=== PATIENT | male | born 1960 | race Caucasian/White ===

== ENCOUNTER → 2018-02-08 15:11 | Outpatient (CLI) | payer BC, SELFPAY ==
[2018-02-08 15:35] LABS: Basophils # 0.1 K/mm3 (0-0.2); Basophils % 0.9 % (0.1-2.0); Eosinophils # 0.3 K/mm3 (0.0-0.4); Eosinophils % 3.5 % (0.1-12.0); Hematocrit 49.2 % (42.0-52.0); Hemoglobin 16.9 g/dL (14.1-18.0); Lymphocytes # 2.3 K/mm3 (0.7-4.5); Lymphocytes % 28.1 K/mm3 (10-50); Mean Corpuscular HGB Conc 34.3 g/dL (31.8-35.4); Mean Corpuscular Hemoglobin 31.6 pg (27.0-31.2); Mean Corpuscular Volume 92.1 fl (80-94); Mean Platelet Volume 7.1 fl (7.4-10.4); Monocytes # 0.6 K/mm3 (0.1-1.0); Monocytes % 7.2 % (1.7-9.3); Neutrophils % 60.4 % (37.0-80.0); Platelet Count 195 K/mm3 (142-424); Red Blood Count 5.35 M/mm3 (4.60-6.20); Red Cell Distribution Width 12.5 % (11.5-17.5); White Blood Count 8.3 K/mm3 (4.8-10.8)
[2018-02-08 16:01] LABS: Prothrombin Time 10.8 seconds (9.4-11.8)
[2018-02-08 17:15] LABS: Anion Gap 13.6 mEq/L (5-15); Blood Urea Nitrogen 13 mg/dL (7-18); Carbon Dioxide 27 mmol/L (21.0-32.0); Chloride 103 mmol/L (98-107); Creatinine,Serum 0.72 mg/dL (0.70-1.30); Estimated Glomerular Filt Rate 113 ml/min (>60); GFR (African American) 136 ML/MIN (>60); Glucose 100 mg/dL (74-106); Potassium 4.6 mmoL/L (3.5-5.1); Sodium 139 mmol/L (136-145)
== END ==
PROVIDERS: Visit Provider Surgery
DX: Z01.818 Encounter for other preprocedural examination (principal); K42.9 Umbilical hernia without obstruction or gangrene
CPT/HCPCS: 36415; 80048; 85025; 85610

== ENCOUNTER → 2018-04-03 12:50 | Outpatient (CLI) | payer BC, SELFPAY ==
[2018-04-03 15:05] LABS: Blood Urea Nitrogen 13 mg/dL (7-18); Creatinine,Serum 0.86 mg/dL (0.70-1.30); Estimated Glomerular Filt Rate 92 ml/min (>60); GFR (African American) 111 ML/MIN (>60)
== END ==
PROVIDERS: Visit Provider Surgery
DX: K46.9 Unspecified abdominal hernia without obstruction or gangrene (principal)
CPT/HCPCS: 36415; 82565; 84520

== ENCOUNTER → 2018-04-06 09:27 | Outpatient (CLI) | payer BC, SELFPAY ==
--- NOTE | 2018-04-06 09:30 | CT_ITS ---
CT abdomen pelvis w con CLINICAL INDICATION: Follow-up hernia surgery, residual or recurrent hernia ITS.REASON: Hernia ORDERING PHYSICIAN: Armin Rivera MD PATIENT AGE: 58 years COMPARISON: None TECHNIQUE: Axial images obtained with sagittal and coronal reformats. All CT scans at the facility use one or more dose reduction, viz: automated exposure control; ma/kV adjustment per patient size (including targeted exams where dose is matched to indication; i.e. head); or iterative reconstruction technique. PROCEDURE: Oral Contrast: Redicat IV Contrast: 75 mL is Isovue-[id number]. FINDINGS: No acute finding in the lung bases. Coronary artery calcifications are present. The liver, gallbladder, spleen, adrenal glands, and kidneys have an unremarkable appearance. No pancreatic mass or ductal dilatation. Tiny calcific density is present in the head of the pancreas nonspecific. No intestinal obstruction or free air. No evidence of appendicitis or diverticulitis. There is been recent umbilical hernia repair. Fluid density is present in the umbilical region measuring 2.2 x 2.8 cm. There does appear to be a residual or recurrent umbilical hernia. This does contain fluid density measuring 2.8 x 2.4 cm and could be due to a small seroma. IMPRESSION: Small residual or recurrent umbilical hernia which contains fluid density consistent with a small seroma
== END ==
PROVIDERS: Family Provider Emergency Medicine; PCP Emergency Medicine; Visit Provider Surgery
DX: K46.9 Unspecified abdominal hernia without obstruction or gangrene (principal)
CPT/HCPCS: 74177; Q9967

== ENCOUNTER → 2018-04-17 10:40 | Outpatient (REF) | payer BC, SELFPAY ==
[2018-04-17 13:50] LABS: Chol/HDL Ratio 8.2 (1-3.5); Cholesterol 206 mg/dL (140-200); HDL Cholesterol 25 mg/dL (27-67); Triglycerides 400 mg/dL (30-200)
[2018-04-17 13:58] LABS: LDL Cholesterol 101 mg/dL (0-130)
== END ==
LOC: LAB 10:40
PROVIDERS: Visit Provider Emergency Medicine
DX: I10 Essential (primary) hypertension (principal)
CPT/HCPCS: 80061

== ENCOUNTER 2018-10-09 02:40 | Observation (INO) ==
--- NOTE | 2018-10-09 02:56 | Emergency Department Note ---
ED Disposition Clinical Impression: Acute bronchitis with bronchospasm, Hypoxia Disposition: Still a Patient Condition on Discharge: Fair Referrals: George Greco MD [Primary Care Provider] - - Critical Care Critical Care Time: No Attestation: On , the high probability of a clinically significant, sudden or life threatening deterioration of the following system(s) required my full and direct attention, intervention and personal management. The time I documented below is in addition to time spent performing reported procedures but includes the following listed in this critical care notation. Vital system(s) involved:: Respiratory Failure My critical care processes included: Assessment & monitoring of V/S, Initial and Re-exams, Data Review/Interpretation, Coordinating Care, Medication Orders and management, Documentation Medical Decision Making - Jose Manuel Inquiry Pt receiving controlled substance: No Vital Signs: 10/09/18 02:41 10/09/18 03:11 10/09/18 03:30 Temperature 99.3 F 98.5 F Temperature Source Oral Oral Pulse Rate [Right Brachial] 89 82 84 Respiratory Rate 26 H 21 19 Blood Pressure [Right Arm] 168/104 H 133/76 Blood Pressure Mean [Right Arm] 125 95 Blood Pressure Source [Right Arm] Manual Cuff/ Auscultation 02 Sat by Pulse Oximetry 87 L 94 L 94 L Oxygen Delivery Method Room Air Nasal Cannula Nasal Cannula Oxygen Flow Rate (LPM) 2 2 10/09/18 04:00 Temperature Temperature Source Pulse Rate [Right Brachial] 99 H Respiratory Rate 24 Blood Pressure [Right Arm] 143/86 H Blood Pressure Mean [Right Arm] 105 Blood Pressure Source [Right Arm] 02 Sat by Pulse Oximetry 91 L Oxygen Delivery Method Room Air Oxygen Flow Rate (LPM) - Lab Data Lab Results 10/09/18 02:50: WBC 10.1, RBC 5.43, Hgb 17.1, Hct 52.7 H, MCV 96.9 H, MCH 31.5 H , MCHC 32.5, RDW 12.5, Plt Count 190, MPV 6.9 L, Neut % (Auto) 71.9, Lymph % (Auto) 17.6, [place] % (Auto) 5.3, Eos % (Auto) 4.6, Baso % (Auto) 0.6, Neut # (Auto) 7.3, Lymph # (Auto) 1.8, [place] # (Auto) 0.5, Eos # (Auto) 0.5 H, Baso # (Auto) 0.1 10/09/18 02:50: Sodium 138, Potassium 4.1, Chloride 102, Carbon Dioxide 29, Anion Gap 11.1, BUN 8, Creatinine 0.86, Estimated Creat Clear 109, Estimated GFR 92, Est GFR ( Amer) 111, Glucose 142 H, Calcium 9.1, Total Bilirubin 0.5, AST 42 H, ALT 91 H, Alkaline Phosphatase 89, Troponin I < 0.02, Total Protein 8.1, Albumin 3.9, Globulin 4.2 H, Albumin/Globulin Ratio 0.9 L 10/09/18 02:50: Lactate 0.9 10/09/18 02:50: Influenza Type A Ag Negative, Influenza Type B Ag Negative Result diagrams: 10/09/18 02:50 10/09/18 02:50 Orders (Tests/Meds): ED MEDICATIONS Generic Name Dose Route Start Last Admin Trade Name Freq PRN Reason Stop Dose Admin Sodium Chloride 1,000 mls @ 999 mls/hr 10/09/18 03:00 10/09/18 03:14 Sod Chlor 0.9% 1000ml Bag IV 10/09/18 04:00 999 mls/hr .Q1H1M ISIAH Administration Discontinued Medications Generic Name Dose Route Start Last Admin Trade Name Freq PRN Reason Stop Dose Admin Albuterol/Ipratropium 3 ml 10/09/18 02:51 10/09/18 03:14 Duoneb 3ml Neb 10/09/18 02:52 3 ml ONCE ONE Administration Albuterol/Ipratropium 3 ml 10/09/18 03:24 10/09/18 03:30 Duoneb 3ml Neb 10/09/18 03:25 3 ml ONCE ONE Administration Albuterol/Ipratropium 3 ml 10/09/18 03:58 10/09/18 04:03 Duoneb 3ml Neb 10/09/18 03:59 3 ml ONCE ONE Administration Azithromycin 500 mg/ Sodium 250 mls @ 250 mls/hr 10/09/18 03:25 10/09/18 03:30 Chloride IV 10/09/18 03:26 250 mls/hr ONCE ONE Administration Protocol Methylprednisolone Sodium Succinate 125 mg 10/09/18 02:51 10/09/18 03:14 Solu-Medrol 125mg/2ml Vial IV 10/09/18 02:52 125 mg ONCE ONE Administration ORDERS Category Date Time Status XR chest 2V Stat Exams 10/09/18 02:51 Taken Blood Culture Stat Micro 10/09/18 02:50 Received ECG Request by /David Stat Y 10/09/18 02:51 Ordered - Radiology Data #1 Image(s): Chest Image Reviewed: Yes I reviewed the patient's radiology image Preliminary Findings: Normal/NAD - ECG Data Tracing #1 EKG interpreted by Eliezer Orourke MD: Rhythm: sinus Rate: 76 [place]: normal Ectopy: none Conduction: normal ST Segment Changes: none T Wave Changes: none Q Waves: none No evidence of acute ischemia or injury - Physician Consults Physician Consulted: True Greco Time: 04:24 Reason -: Admission Comment/Response: Agrees to admit the patient to the hospital. We discussed the patient's clinical information, including history, exam, laboratory and radiology results and ED course. Per hospital procedure, I will write temporary bridge inpatient orders on the patient. Specific orders requested by the admitting physician: Continue nebulizer treatments, antibiotics, steroids, oxygen - Reevaluation(s) Time: 04:21 Reevaluation #1: Has had 3 nebulizer treatments, steroids, antibiotics. Still tachypneic and mildly labored breathing with wheezing. Says that he feels a little better. Pulse ox 90% on room air. Does not feel well enough to go home. General Adult HPI - General Chief complaint: Shortness of Breath/Dyspnea Stated complaint: Difficulty breathing,cough Time Seen by Provider: 10/09/18 02:55 Mode of Arrival: Ambulatory Limitations: No Limitations Description of Symptoms (Recalled from ER Triage Doc. by RN): Here for c/o shortness of breath and cough that gets worse with laying down. Pt reports he has felt bad for a couple days. Reports fever at home. Reports chest congestion. - History of Present Illness HPI narrative: Sick for couple of days with respiratory infection symptoms. Productive cough, rhinorrhea, sore throat, earaches, body aches, headache, hoarseness. Also wheezing and short of breath. He is a smoker. No known exposures. No flu shot this year. - Related Data Home Medications Medication Instructions Recorded Confirmed sildenafil (antihypertensive) 20 20 mg PO TID 10/24/17 10/09/18 mg tablet Fluticasone Propionate 1 spray INTRANASAL DAILY 02/14/18 10/09/18 Previous Rx's Medication Instructions Recorded gabapentin 800 mg tablet 800 mg PO TID #90 tab 08/23/18 lisinopril 20 mg tablet 20 mg PO BID #180 tab 08/23/18 Allergies Allergy/AdvReac Type Severity Reaction Status Date / Time No Known Allergies Allergy Verified 08/23/18 09:32 [facility] History - Hepatitis A Screen Drug use history?: No High risk sexual behaviors?: No History of sexually transmitted infection?: No Currently employed?: No Childcare worker?: No Do you have indoor plumbing?: Yes Do you have electricity?: Yes Attestation statement:: This patient has been screened for Hepatitis A risk factors. I have reviewed the patient's past medical history: Yes Medical History: Reports:: Hypertension Denies:: Seizures Other Medical History: Reports: Other. Denies: Blood Transfusion Reaction Comment: nerve pain Laterality Cases: Bilateral: Other Other Surgeries: Yes: Hernia Repair, Other Amputation: No Fractures: No Comment: Back Surgery X 2 - Social History Smoking Status: Current every day smoker Tobacco Type: cigarettes # Packs/Day (cigarettes): 1 Alcohol Intake: never Alcohol Intake Frequency:: 0-2 drinks per day Substance Use Type: denies use Occupational Status: employed Housing: house Household Members: significant other - Psychiatric History Expresses thoughts of harming self/others: None Suicide Plan Description: No Plan Family Hx:: Coronary Artery Disease ROS Obtained: Yes All systems reviewed & no additional complaints - Constitutional Constitutional: Reports body ache, Reports fever(s) - ENT Ears, Nose, Mouth, and Throat: Reports otalgia, Reports hoarseness, Reports nasal discharge, Reports sore throat - Respiratory Respiratory: Yes cough, Yes dyspnea, Yes excessive phlegm production, Yes wheezing - Neurologic Neurologic: Reports headache(s) Physical Exam - General General appearance: alert, in no apparent distress - Head Head exam: atraumatic, normocephalic - Eye Eye exam: Present: normal appearance, PERRL, EOMI - ENT ENT exam: Present: normal oropharynx, mucous membranes moist, TM's normal bilaterally - Neck Neck exam: Present: normal inspection, full ROM, trachea midline. Absent: meningismus - Chest Chest inspection: Present: normal inspection, symmetric chest wall rise - Respiratory Respiratory exam: Present: wheezes - Cardiovascular Cardiovascular exam: Present: regular rate, normal rhythm, normal heart sounds - Abdominal Exam Abdominal exam: Present: soft. Absent: distention, tenderness - Extremities Exam Extremities exam: Present: normal inspection - Neurological Exam Neurological exam: Present: alert, oriented X3 - Psychiatric Psychiatric exam: Present: normal affect, normal mood - Skin Skin exam: Present: warm, dry
[2018-10-09 03:11] LABS: Basophils # 0.1 K/mm3 (0-0.2); Basophils % 0.6 % (0.1-2.0); Eosinophils # 0.5 K/mm3 (0.0-0.4); Eosinophils % 4.6 % (0.1-12.0); Hematocrit 52.7 % (42.0-52.0); Hemoglobin 17.1 g/dL (14.1-18.0); Lymphocytes # 1.8 K/mm3 (0.7-4.5); Lymphocytes % 17.6 % (10-50); Mean Corpuscular HGB Conc 32.5 g/dL (31.8-35.4); Mean Corpuscular Hemoglobin 31.5 pg (27.0-31.2); Mean Corpuscular Volume 96.9 fl (80-94); Mean Platelet Volume 6.9 fl (7.4-10.4); Monocytes # 0.5 K/mm3 (0.1-1.0); Monocytes % 5.3 % (1.7-9.3); Neutrophils # 7.3 K/mm3 (1.8-7.8); Neutrophils % 71.9 % (37.0-80.0); Platelet Count 190 K/mm3 (142-424); Red Blood Count 5.43 M/mm3 (4.60-6.20); Red Cell Distribution Width 12.5 % (11.5-17.5); White Blood Count 10.1 K/mm3 (4.8-10.8)
[2018-10-09 03:27] LABS: Alanine Aminotransferase 91 U/L (12-78); Albumin Level 3.9 gm/dL (3.4-5.0); Albumin/Globulin Ratio 0.9 (1.1-1.8); Alkaline Phosphatase 89 U/L (46-116); Anion Gap 11.1 mEq/L (5-15); Aspartate Amino Transferase 42 U/L (15-37); Bilirubin,Total 0.5 mg/dL (0.2-1.0); Blood Urea Nitrogen 8 mg/dL (7-18); Calcium 9.1 mg/dL (8.5-10.1); Carbon Dioxide 29 mmol/L (21.0-32.0); Chloride 102 mmol/L (98-107); Globulin 4.2 gm/dl (1.3-3.2); Glucose 142 mg/dL (74-106); Potassium 4.1 mmoL/L (3.5-5.1); Sodium 138 mmol/L (136-145); Total Protein,Serum 8.1 gm/dL (6.4-8.2)
--- NOTE | 2018-10-09 09:33 | Pharmacy Consult Notes ---
[facility] Pharmacy VTE Monitoring - Patient Demographics Admission date: 10/09/18 Report Date: 10/09/18 Time: 09:33 Allergies/Adverse Reactions: Patient Allergies No Known Allergies Allergy (Verified 08/23/18 09:32) Height: 1.7 m Weight: 84.056 kg Patient Problems: Current Active Problems Acute bronchitis with bronchospasm (Acute) Hypoxia (Acute) - VTE Risk Labs: VTE Related Lab Results Hgb 17.1 g/dL (14.1-18.0) 10/09/18 02:50 Hct 52.7 % (42.0-52.0) H 10/09/18 02:50 Plt Count 190 K/mm3 (142-424) 10/09/18 02:50 BUN 8 mg/dL (7-18) 10/09/18 02:50 Creatinine 0.86 mg/dL (0.70-1.30) 10/09/18 02:50 Estimated Creat Clear 109 mL/min (50-200) 10/09/18 02:50 Was VTE Risk Assessment Performed: Yes VTE Score: 3 VTE Risk Level: Low Risk - Prophylaxis VTE Prophylaxis Ordered?: Yes Types of VTE Prophylaxis: TEDS Knee High Location of Applied Device: Bilateral Lower Extremeties
--- NOTE | 2018-10-09 11:56 | History & Physical Report ---
*Admission Date: 10/09/18 *Chief complaint: Cough/shortness of air *History of present illness: 58-year-old white male with history of heavy tobacco use disorder, approximately 1 or 2 packs/day for the past 45 years, who presented to the emergency department because of cough, shortness of air and wheezing. Found to have hypoxia, tight airway sounds, and had been on a variety of outpatient antibiotics over the past couple of months. Admitted for pulmonary toilet, oxygen therapy and steroid therapy. Of note patient states that he has been "struggling with my breathing" for about the past year. He has never been diagnosed with emphysema or chronic bronchitis. [facility] History I have reviewed the patient's past medical history: Yes Medical History: Reports:: Hypertension Denies:: Cancer, Diabetes Mellitus Type 1, Diabetes Mellitus Type 2, MRSA, Seizures Other Medical History: Reports: Arthritis, Hoarseness, Sinus Problems, Other. Denies: Blood Transfusion Reaction Laterality Cases: Left: Partial Knee Replacement, Bilateral: Tonsillectomy, Other Other Surgeries: Yes: Hernia Repair, Other Amputation: No Fractures: No - *Social History Educational Level: Completed High School Smoking Status: Current every day smoker Tobacco Type: cigarettes # Packs/Day (cigarettes): 1 #Yrs smoked (if former smoker): 45 Alcohol Intake: current Alcohol Intake Frequency:: 0-2 drinks per day Substance Use Type: painkillers Occupational Status: employed Housing: house Household Members: significant other - Psychiatric History Expresses thoughts of harming self/others: None Suicide Plan Description: No Plan *Family Hx:: Cancer, Coronary Artery Disease, Heart Attack, Hyperlipidemia, Hypertension, Stroke Review of Systems - Review of Systems Review of systems:: pertinent systems reviewed and negative unless documented below - Constitutional Denies anorexia, Denies body ache(s), Denies chills, Denies excessive sweating, Denies fever(s) - Eyes Denies blind spots, Denies blurry vision - ENT Denies abnormal hearing, Denies bleeding gums, Denies dry mouth, Denies difficulty swallowing - *Cardiovascular Reports shortness of breath, Reports shortness of breath with activity, Denies chest pain, Denies chest pain at rest, Denies excessive sweating, Denies irregular heart rhythm, Denies leg swelling - *Respiratory Reports change in phlegm color, Reports chest congestion, Reports cough, Reports shortness of breath, Reports shortness of breath with activity, Reports excessive phlegm production, Denies coughing up blood - *Gastrointestinal Denies abdominal pain, Denies belching, Denies coffee ground vomit, Denies constipation, Denies difficulty swallowing - *Genitourinary Denies difficulty urinating, Denies blood in urine - *Musculoskeletal Denies abnormal walking, Denies joint pain, Denies decreased muscle mass - *Neurologic Reports headache(s), Denies abnormal walking, Denies abnormal hearing, Denies behavioral changes - Psychiatric Denies abnormal sleep pattern Meds Home Medications Medication Instructions Recorded Confirmed Type sildenafil (antihypertensive) 20 20 mg PO NEEDED PRN 10/24/17 10/09/18 History mg tablet Fluticasone Propionate 1 spray INTRANASAL DAILY PRN 02/14/18 10/09/18 History gabapentin 800 mg tablet 800 mg PO TID #90 tab 08/23/18 10/09/18 Rx lisinopril 20 mg tablet 20 mg PO BID #180 tab 08/23/18 10/09/18 Rx Allergies Allergy/AdvReac Type Severity Reaction Status Date / Time No Known Allergies Allergy Verified 08/23/18 09:32 Exam Vital signs and Labs for Last 24 Hours: Temp Pulse Resp BP Pulse Ox 97.9 F 88 19 139/77 90 L 10/09/18 08:00 10/09/18 09:59 10/09/18 08:00 10/09/18 08:00 10/09/18 10:02 Laboratory Results - last 24 hr 10/09/18 02:50: WBC 10.1, RBC 5.43, Hgb 17.1, Hct 52.7 H, MCV 96.9 H, MCH 31.5 H , MCHC 32.5, RDW 12.5, Plt Count 190, MPV 6.9 L, Neut % (Auto) 71.9, Lymph % (Auto) 17.6, [place] % (Auto) 5.3, Eos % (Auto) 4.6, Baso % (Auto) 0.6, Neut # (Auto) 7.3, Lymph # (Auto) 1.8, [place] # (Auto) 0.5, Eos # (Auto) 0.5 H, Baso # (Auto) 0.1 10/09/18 02:50: Sodium 138, Potassium 4.1, Chloride 102, Carbon Dioxide 29, Anion Gap 11.1, BUN 8, Creatinine 0.86, Estimated Creat Clear 109, Estimated GFR 92, Est GFR ( Amer) 111, Glucose 142 H, Calcium 9.1, Total Bilirubin 0.5, AST 42 H, ALT 91 H, Alkaline Phosphatase 89, Troponin I < 0.02, Total Protein 8.1, Albumin 3.9, Globulin 4.2 H, Albumin/Globulin Ratio 0.9 L 10/09/18 02:50: Lactate 0.9 10/09/18 02:50: Influenza Type A Ag Negative, Influenza Type B Ag Negative I & O for Last 24 hours: Intake & Output 10/06/18 10/07/18 10/08/18 10/09/18 11:59 11:59 11:59 11:59 Intake Total 1490 / 1490 Output Total 300 / 300 Balance 1190 / 1190 Weight 185 lb 5 oz Microbiology Reports for the Last 24 Hours: Microbiology 10/09/18 06:20 Sputum - Expectorated Sputum Gram Stain - Final Narrative: Patient is awake. Appears older than stated age. Heavily bearded. Obvious nicotine staining of fingers and teeth and lips. Lungs have rhonchi bilaterally but symmetric air entry. Heart rate regular. Abdomen soft and nontender. No clubbing, no cyanosis, no edema. Moves all arms and legs well. Is oriented x3. Assessment and Plan (1) Acute bronchitis with bronchospasm Current visit: Yes Status: Acute Category: Medical Code(s): J20.9 - Acute bronchitis, unspecified Agree with IV fluids, steroids and oxygen therapy. Patient probably has chronic bronchitis. We will institute inhaler therapy here in the hospital in preparation for discharge. (2) Hypoxia Current visit: Yes Status: Acute Category: Medical Code(s): R09.02 - Hypoxemia Oxygen supplementation.
--- NOTE | 2018-10-10 08:20 | Discharge Summary ---
General - General Admission date:: 10/09/18 Discharge date: 10/10/18 HPI HPI: 58-year-old white male with history of heavy tobacco use disorder, approximately 1 or 2 packs/day for the past 45 years, who presented to the emergency department because of cough, shortness of air and wheezing. Found to have hypoxia, tight airway sounds, and had been on a variety of outpatient antibiotics over the past couple of months. Admitted for pulmonary toilet, oxygen therapy and steroid therapy. Of note patient states that he has been "struggling with my breathing" for about the past year. He has never been diagnosed with emphysema or chronic bronchitis. Hospital Course Hospital Course: Patient was admitted, placed on IV steroids and IV antibiotics for community- acquired bronchopneumonia. He did well, and was able to be weaned off his oxygen over the next 24 hours. This morning O2 levels were 92% on room air. He was able to perform all of his ADLs with minimal shortness of air and had a few coughing spells but tolerated breakfast well. Examination had improved. Patient will be discharged home on inhalers, with inhaled corticosteroid/long- acting beta agonist therapy along with as needed short acting beta agonist and antibiotics and prednisone with follow-up with his regular physicians group. He was strongly encouraged not to smoke and nicotine patch was prescribed. Objective Vital signs: Temp Pulse Resp BP Pulse Ox 98.7 F 90 18 138/76 92 L 10/10/18 07:47 10/10/18 07:47 10/10/18 07:47 10/10/18 07:47 10/10/18 07:47 Narrative: Patient is alert, pleasant, oriented x3. No cranial nerve deficits. Lungs have good air movement. Minimal rhonchi bilaterally but no wheezing to this morning. No crackles. Heart rate regular. Abdomen soft, no clubbing or cyanosis or edema. Moves arms and legs well. Results Labs on day of discharge: Preliminary micro results at discharge 10/09/18 06:20 Sputum Culture - Preliminary Sputum - Expectorated Sputum DS: Diagnosis - Discharge Diagnosis (1) Acute bronchitis with bronchospasm Status: Acute (2) Hypoxia Status: Resolved Discharge Plan - Patient Discharge Instructions ACTIVITY: Continue current activity DIET: continue same diet Patient Instructions: DI for Acute Bronchitis - Follow up Plan Follow up with: George Greco MD [Primary Care Provider] - 10/16/18 Disposition: Home, Self-[facility] Medications: Home Medications Medication Instructions Recorded Confirmed Type sildenafil (antihypertensive) 20 20 mg PO NEEDED PRN 10/24/17 10/09/18 History mg tablet Fluticasone Propionate 1 spray INTRANASAL DAILY PRN 02/14/18 10/09/18 History gabapentin 800 mg tablet 800 mg PO TID #90 tab 08/23/18 10/09/18 Rx lisinopril 20 mg tablet 20 mg PO BID #180 tab 08/23/18 10/09/18 Rx Azithromycin [Zithromax 250mg 250 mg PO DIRECTED #6 tab 10/10/18 Rx tab] Nicotine [Nicotine Patch 21 mg TD DAILY #30 patch 10/10/18 Rx 21mg/24hrs] Promethazine/Dextromethorphan 5 ml PO Q6HP PRN #240 ml 10/10/18 Rx [Promethazine-Dm Syrup] predniSONE [Deltasone 20mg 20 mg PO BID 7 Days #14 tab 10/10/18 Rx tablet] Prescriptions/Medication Reconciliation: New Albuterol Sulfate [Proventil-HFA 90mcg/puff Inh] 2 puffs IH Q4HP PRN puff PRN Reason: Shortness Of Breath Fluticasone/Salmeterol [Fluticasone/Salmeterol 250/50mcg diskus] 1 puffs IH BIDRT inhaler Azithromycin [Zithromax 250mg tab] 250 mg PO DIRECTED #6 tab Nicotine [Nicotine Patch 21mg/24hrs] 21 mg TD DAILY #30 patch predniSONE [Deltasone 20mg tablet] 20 mg PO BID 7 Days #14 tab Promethazine/Dextromethorphan [Promethazine-Dm Syrup] 5 ml PO Q6HP PRN #240 ml PRN Reason: Cough Continue gabapentin 800 mg tablet 800 mg PO TID #90 tab sildenafil (antihypertensive) 20 mg tablet 20 mg PO NEEDED PRN PRN Reason: HTN lisinopril 20 mg tablet 20 mg PO BID #180 tab Fluticasone Propionate 1 spray INTRANASAL DAILY PRN PRN Reason: ALLERGIES
== END 2018-10-10 09:02 | disposition home or self-care (01) ==
LOC: ER 02:40 → 2ND 04:27 → INTOOBSV 04:50 → 2ND 04:55
PROVIDERS: ADMIT Internal Medicine Adolescent Medicine; ATTEND Internal Medicine Adolescent Medicine
DX: Z83.438 Family history of other disorder of lipoprotein metabolism and other lipidemia; F17.210 Nicotine dependence, cigarettes, uncomplicated; R09.02 Hypoxemia; Z79.51 Long term (current) use of inhaled steroids; J18.0 Bronchopneumonia, unspecified organism; Z82.3 Family history of stroke; Z82.49 Family history of ischemic heart disease and other diseases of the circulatory system; J20.9 Acute bronchitis, unspecified; Z96.652 Presence of left artificial knee joint; I10 Essential (primary) hypertension; Z80.9 Family history of malignant neoplasm, unspecified; Z79.899 Other long term (current) drug therapy
CPT/HCPCS: 71020; 71046; 80053; 83605; 84484; 85025; 87040; 87070; 87205; 87275; 87276; 93005; 94640; 94761; 96365; 96367; 96375; 99285; G0378; J0456

== ENCOUNTER → 2018-10-30 10:36 | Outpatient (CLI) | payer BC, SELFPAY ==
[2018-10-30 11:01] LABS: Blood Urea Nitrogen 10 mg/dL (7-18); Estimated Glomerular Filt Rate 100 ml/min (>60); GFR (African American) 121 ML/MIN (>60)
== END ==
PROVIDERS: Visit Provider Surgery
DX: K46.9 Unspecified abdominal hernia without obstruction or gangrene (principal)
CPT/HCPCS: 36415; 82565; 84520

== ENCOUNTER → 2018-11-03 10:18 | Outpatient (CLI) | payer BC, SELFPAY ==
--- NOTE | 2018-11-03 10:20 | CT_ITS ---
CT abdomen pelvis wo con CLINICAL INDICATION: Umbilical pain, hernia ITS.REASON: hernia ORDERING PHYSICIAN: Armin Rivera MD PATIENT AGE: 58 years COMPARISON: 04/06/2018 TECHNIQUE: Axial images obtained with sagittal and coronal reformats. All CT scans at the facility use one or more dose reduction, viz: automated exposure control, ma/kV adjustment per patient size (including targeted exams where dose is matched to indication, i.e. head), or iterative reconstruction technique. PROCEDURE: Oral Contrast: Redicat IV Contrast: None . FINDINGS: Thorax: No acute finding. Coronary artery calcifications. The liver, gallbladder, spleen, adrenal glands, pancreas, and kidneys have an unremarkable unenhanced appearance. No renal or ureteral calculi. No evidence of appendicitis or diverticulitis. No intestinal obstruction or free air. There is a small umbilical hernia. The hernia orifice measures 3.4 cm in width. The hernia does contain a knuckle of small bowel. No intestinal obstruction or free air. Mild thickening of urinary bladder noted and could be due to nondistention. No pelvic mass or abnormal fluid collection or focal inflammatory changes evident within the pelvis. There is mild fusiform dilatation of the infrarenal abdominal aorta which measures up to 3.8 cm in AP dimension. The aneurysm begins 1.5 cm below the level of the left renal artery and does not involve the aortic bifurcation. No acute bony anomalies IMPRESSION: 1. Small umbilical hernia containing a knuckle of small bowel. No evidence of intestinal obstruction. 2. 3.8 cm fusiform abdominal aortic aneurysm
--- NOTE | 2018-11-03 10:32 | HMH.ITSHM ---
Current Home Medications as stated by this patient Cedric Butler or customer service representative. []LISIONPRIL,GABAPENTIN,
== END ==
PROVIDERS: PCP Emergency Medicine; Visit Provider Surgery
DX: K46.9 Unspecified abdominal hernia without obstruction or gangrene (principal)
CPT/HCPCS: 74176

== ENCOUNTER → 2018-12-04 11:33 | Outpatient (CLI) | payer BC, SELFPAY ==
[2018-12-04 12:03] LABS: Basophils # 0.1 K/mm3 (0-0.2); Eosinophils # 0.4 K/mm3 (0.0-0.4); Eosinophils % 4.2 % (0.1-12.0); Hematocrit 48.4 % (42.0-52.0); Hemoglobin 16.7 g/dL (14.1-18.0); Lymphocytes # 2.5 K/mm3 (0.7-4.5); Lymphocytes % 24.2 % (10-50); Mean Corpuscular HGB Conc 34.5 g/dL (31.8-35.4); Mean Corpuscular Hemoglobin 31.8 pg (27.0-31.2); Mean Corpuscular Volume 92.2 fl (80-94); Mean Platelet Volume 6.9 fl (7.4-10.4); Monocytes # 0.6 K/mm3 (0.1-1.0); Monocytes % 5.7 % (1.7-9.3); Neutrophils # 6.7 K/mm3 (1.8-7.8); Neutrophils % 64.8 % (37.0-80.0); Platelet Count 247 K/mm3 (142-424); Red Blood Count 5.25 M/mm3 (4.60-6.20); Red Cell Distribution Width 12.9 % (11.5-17.5); White Blood Count 10.3 K/mm3 (4.8-10.8)
[2018-12-04 12:29] LABS: Anion Gap 16.7 mEq/L (5-15); Blood Urea Nitrogen 11 mg/dL (7-18); Calcium 9.1 mg/dL (8.5-10.1); Carbon Dioxide 25 mmol/L (21.0-32.0); Chloride 100 mmol/L (98-107); Creatinine,Serum 0.76 mg/dL (0.70-1.30); Estimated Glomerular Filt Rate 106 ml/min (>60); GFR (African American) 128 ML/MIN (>60); Glucose 103 mg/dL (74-106); Potassium 4.7 mmoL/L (3.5-5.1); Sodium 137 mmol/L (136-145)
== END ==
PROVIDERS: Visit Provider Surgery
DX: K46.9 Unspecified abdominal hernia without obstruction or gangrene (principal)
CPT/HCPCS: 36415; 80048; 85025

== ENCOUNTER → 2019-08-30 08:48 | Outpatient (CLI) | payer BC, SELFPAY ==
--- NOTE | 2019-08-30 08:51 | XR_ITS ---
PROCEDURE: XR FOOT WT BEARING LT 3V CLINICAL INDICATION: b/l foot pain Foot pain COMPARISON: No exams were available for comparison FINDINGS: No fracture or dislocation. No lytic or blastic change. There is normal mineralization. Osteoarthritic change 1st MTP joint with bony hypertrophy. Borderline pes planus. Prominent posterior talar process. Mild osteoarthritic change of the ankle joint anteriorly Other findings:None. IMPRESSION: The degenerative changes, no acute finding. Borderline pes planus Dictated by: Abraham Lino MD 08/30/2019 16:05 Electronically signed by Abraham Lino MD in [place] 08/30/2019 16:05
--- NOTE | 2019-08-30 08:51 | XR_ITS ---
PROCEDURE: XR FOOT WT BEARING RT 3V CLINICAL INDICATION: b/l foot pain COMPARISON: No exams were available for comparison FINDINGS: No fracture or dislocation. No lytic or blastic change. There is normal mineralization. There are severe osteoarthritic changes at the 1st metatarsophalangeal joint with prominent exostosis at the distal 1st metatarsal dorsally and laterally and at the proximal aspect of the proximal phalanx laterally. Other findings:Mild pes planus. Prominent os trigonum IMPRESSION: Severe osteoarthritic change with prominent bony spurring at the 1st metatarsophalangeal joint with borderline pes planus Dictated by: Abraham Lino MD 08/30/2019 16:07 Electronically signed by Abraham Lino MD in [place] 08/30/2019 16:07
== END ==
PROVIDERS: PCP Emergency Medicine; Visit Provider Podiatrist
DX: M79.672 Pain in left foot (principal); M79.671 Pain in right foot; B35.1 Tinea unguium
CPT/HCPCS: 73630; 87220

== ENCOUNTER 2020-06-14 10:33 | Emergency (ER) | payer BC, SELFPAY ==
[2020-06-14 10:36] VITALS: BP 127/77; PULSE 84; RESP 18; TEMP 36.9; O2SAT 100; BMI 33.5
--- NOTE | 2020-06-14 10:43 | HMH.EDLOEX ---
ED Disposition Clinical Impression: Abscess of skin or subcutaneous tissue Qualifiers: Site of cutaneous abscess: extremity Site of cutaneous abscess of extremity: lower extremity Laterality: left Qualified Code(s): L02.416 - Cutaneous abscess of left lower limb Cellulitis Qualifiers: Site of cellulitis: extremity Site of cellulitis of extremity: lower extremity Laterality: left Qualified Code(s): L03.116 - Cellulitis of left lower limb Disposition: Home, Self-Care Condition on Discharge: Good Instructions: DI for Skin Abscess Prescriptions: Doxycycline Hyclate [Doxycycline 100mg Capsule] 100 mg PO BID 7 Days #14 cap Prescription Printed Referrals: George Greco MD [Primary Care Provider] - 3 days - Critical Care Critical Care Time: No Attestation: On , the high probability of a clinically significant, sudden or life threatening deterioration of the following system(s) required my full and direct attention, intervention and personal management. The time I documented below is in addition to time spent performing reported procedures but includes the following listed in this critical care notation. Medical Decision Making - Jose Manuel Inquiry Pt receiving controlled substance: No Vital Signs: 06/14/20 10:36 Temperature 98.5 F Temperature Source Oral Pulse Rate [Left Radial] 84 Respiratory Rate 18 Blood Pressure [Right Arm] 127/77 Blood Pressure Mean [Right Arm] 93 Blood Pressure Source [Right Arm] Automatic Cuff Blood Pressure Position [Right Arm] Sitting 02 Sat by Pulse Oximetry 100 Oxygen Delivery Method Room Air Orders (Tests/Meds): ED MEDICATIONS Discontinued Medications Generic Name Dose Route Start Last Admin Trade Name Freq PRN Reason Stop Dose Admin Doxycycline Hyclate 100 mg 06/14/20 11:04 06/14/20 11:18 Vibra-Tab 100mg Tablet PO 06/14/20 11:05 100 mg ONCE STA Administration Protocol Medical Decision Narrative: Patient with abscess just inferior to the left knee. No generalized joint swelling that would suggest septic arthritis or septic joint. He is afebrile. Abscess is incised with copious production of purulent fluid. Loculations were broken up and wound was irrigated extensively. We discussed wound care, antibiotics and follow-up with primary care provider in 2 to 3 days for reevaluation. Also discussed return precautions including fever, worsening redness or pain. Lower Extremity Injury HPI - General Stated Complaint: left knee pain Time Seen by Provider: 06/14/20 10:43 Source of Information: Patient Limitations: No Limitations - History of Present Illness HPI Narrative: This is a 60-year-old male who presents to the emergency department for wound to the left knee. 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 Since then he developed some swelling over the anterior aspect of the knee and redness that extends part way down his calf and to just above the knee. He also noticed some purulent drainage from the wound a few nights ago. No fevers. No pain in the joint. - Related Data Home Medications Medication Instructions Recorded Confirmed Fluticasone/Salmeterol [Advair 1 puffs IH BIDRT 12/05/18 05/30/20 250/50mcg Diskus] Omeprazole [Omeprazole 20mg 20 mg PO DAILY 10/15/19 05/30/20 Capsule] Previous Rx's Medication Instructions Recorded albuterol sulfate 90 mcg/actuation 2 inh INHALATION Q4HP PRN #18 g 07/24/19 aerosol inhaler sildenafil (pulm.hypertension) 20 20 mg PO NEEDED PRN #20 tab 07/24/19 mg tablet ciclopirox 0.77 % topical gel 1 applic TOPICAL ONCE 90 Days #30 g 11/26/19 diclofenac sodium 1 % topical gel 4 g TOPICAL QID PRN #30 g 11/26/19 fluticasone propionate 50 1 spray INTRANASAL DAILY PRN #15.8 01/21/20 mcg/actuation nasal g spray,suspension lisinopril 20 mg tablet See Rx Instructions
[2020-06-14 11:40] VITALS: BP 109/78; PULSE 79; RESP 19; TEMP 37; O2SAT 96
== END 2020-06-14 11:41 | disposition home or self-care (01) ==
PROVIDERS: Emergency Provider Emergency Medicine; PCP Emergency Medicine
DX: L02.416 Cutaneous abscess of left lower limb (principal); J44.9 Chronic obstructive pulmonary disease, unspecified; I10 Essential (primary) hypertension; F17.210 Nicotine dependence, cigarettes, uncomplicated; Z79.899 Other long term (current) drug therapy; Z23 Encounter for immunization
CPT/HCPCS: 10060; 90471; 90715; 96372; 99282

== ENCOUNTER 2020-06-18 17:26 | Emergency (ER) | payer BC, SELFPAY ==
[2020-06-18 17:46] VITALS: BP 140/96; PULSE 78; RESP 17; TEMP 37.1; O2SAT 96; BMI 29.0
--- NOTE | 2020-06-18 18:02 | XR_ITS ---
PROCEDURE: XR KNEE LT 3V CLINICAL INDICATION: septic knee Pain COMPARISON: No exams were available for comparison FINDINGS: Multi segmented bony densities are present at the tibial tuberosity region. These are well-circumscribed and may be due to fragmented ossification center of Teo-Schlatter's disease. There is prominent pretibial soft tissue swelling at the tibial tuberosity region. No obvious suprapatellar effusion. No bony destructive process evident. IMPRESSION: Fragmented tibial tuberosity consistent with [place]-Schlatter's disease with prominent pretibial soft tissue swelling consistent with bursitis. Dictated by: Abraham Lino MD 06/18/2020 18:25 Abraham Lino MD in [facility] 06/18/2020 18:25
--- NOTE | 2020-06-18 18:13 | PC.NURSE ---
pt to xray
[2020-06-18 18:48] LABS: Basophils # 0.1 K/mm3 (0-0.2); Basophils % 1.1 % (0.1-2.0); Eosinophils # 0.6 K/mm3 (0.0-0.4); Hematocrit 43.5 % (42.0-52.0); Hemoglobin 15.3 g/dL (14.1-18.0); Lymphocytes # 2.7 K/mm3 (0.7-4.5); Lymphocytes % 28.2 % (10-50); Mean Corpuscular HGB Conc 35.1 g/dL (31.8-35.4); Mean Corpuscular Hemoglobin 32.8 pg (27.0-31.2); Mean Corpuscular Volume 93.4 fl (80-94); Mean Platelet Volume 7.4 fl (7.4-10.4); Monocytes # 0.6 K/mm3 (0.1-1.0); Monocytes % 6.5 % (1.7-9.3); Neutrophils # 5.6 K/mm3 (1.8-7.8); Neutrophils % 58.2 % (37.0-80.0); Platelet Count 222 K/mm3 (142-424); Red Blood Count 4.65 M/mm3 (4.60-6.20); Red Cell Distribution Width 12.9 % (11.5-17.5); White Blood Count 9.7 K/mm3 (4.8-10.8)
[2020-06-18 18:53] LABS: Chloride 102 mmol/L (98-107); Potassium 4.6 mmoL/L (3.5-5.1); Sodium 139 mmol/L (136-145)
[2020-06-18 18:56] LABS: Anion Gap 13.6 mEq/L (5-15); Blood Urea Nitrogen 15 mg/dl (9-20); Carbon Dioxide 28 mmol/L (22.0-30.0); Creatinine Clearance Estimated 102 mL/min (50-200); Estimated Glomerular Filt Rate 86 ml/min (>60); GFR (African American) 105 ML/MIN (>60); Glucose 118 mg/dl (74-100)
[2020-06-18 19:01] LABS: C-Reactive Protein 10.4 mg/L (0-4)
--- NOTE | 2020-06-18 19:05 | PC.NURSE ---
report from hadley
[2020-06-18 19:25] LABS: Erythrocyte Sedimentation Rate 21 mm/hr (0-20)
--- NOTE | 2020-06-18 20:42 | HMH.EDGENADL ---
ED Disposition Clinical Impression: Wound check, abscess Disposition: Home, Self-Care Condition on Discharge: Good Instructions: DI for Skin Abscess Additional Instructions: You were seen on an emergency basis. It is very important that you follow up with your primary care provider and/or specialist as we discussed within 2 days. All labs and imaging were obtained and interpreted here to rule out life threatening emergencies, but your final results should be reviewed by your primary doctor at your follow up appointment. Please return to the emergency department if any of your symptoms worsen, or if they do not improve as we discussed. Referrals: George Greco MD [Primary Care Provider] - Shaneka Valenzuela MD [Physician] - - Critical Care Critical Care Time: No Attestation: On 06/18/20, the high probability of a clinically significant, sudden or life threatening deterioration of the following system(s) required my full and direct attention, intervention and personal management. The time I documented below is in addition to time spent performing reported procedures but includes the following listed in this critical care notation. Medical Decision Making - Medical Records Medical records reviewed: Yes: I reviewed the patient's medical records. - Jose Manuel Inquiry Pt receiving controlled substance: No Vital Signs: 06/18/20 17:46 Temperature 98.7 F Temperature Source Oral Pulse Rate [Right Radial] 78 Respiratory Rate 17 Blood Pressure [Right Arm] 140/96 H Blood Pressure Mean [Right Arm] 110 02 Sat by Pulse Oximetry 96 Oxygen Delivery Method Room Air - Lab Data Lab Results 06/18/20 18:36: WBC 9.7, RBC 4.65, Hgb 15.3, Hct 43.5, MCV 93.4, MCH 32.8 H, MCHC 35.1, RDW 12.9, Plt Count 222, MPV 7.4, Neut % (Auto) 58.2, Lymph % (Auto) 28.2, [place] % (Auto) 6.5, Eos % (Auto) 6.0, Baso % (Auto) 1.1, Neut # (Auto) 5.6, Lymph # (Auto) 2.7, [place] # (Auto) 0.6, Eos # (Auto) 0.6 H, Baso # (Auto) 0.1, ESR 21 H 06/18/20 18:36: Sodium 139, Potassium 4.6, Chloride 102, Carbon Dioxide 28, Anion Gap 13.6, BUN 15, Creatinine 0.90, Estimated Creat Clear 102, Estimated GFR 86, Est GFR ( Amer) 105, Glucose 118 H, Calcium 10.0, C-Reactive Protein 10.4 H Result diagrams: 06/18/20 18:36 06/18/20 18:36 Orders (Tests/Meds): ORDERS Category Date Time Status Blood Culture Stat Micro 06/18/20 18:36 Received Medical Decision Narrative: [age]-year-old male presenting for wound check to left knee status post I&D of a prepatellar bursitis. Nontoxic, afebrile, hemodynamically stable. Intact range of motion. White blood cell count within normal limits. Sed rate and CRP are elevated however clinically there is no indication that this is a septic joint. X-ray was negative for acute disease. Patient already on doxycycline. Will follow-up with orthopedics. General Adult HPI - General Chief complaint: Skin/Abscess/Foreign Body Stated complaint: left knee, infection Time Seen by Provider: 06/18/20 18:42 Mode of Arrival: Ambulatory Limitations: No Limitations Description of Symptoms (Recalled from ER Triage Doc. by RN): pt presents to ed with c/o left knee infection. pt states he was seen here in the ed on tuesday and the abscess was drained. pt states the infection is back. - History of Present Illness HPI narrative: 60-year-old male with known left suprapatellar bursitis on doxycycline presenting for wound evaluation. Wants to make sure that the periwound erythema is stable. No increased drainage, pain, fever, chills, nausea, vomiting. Still has full range of motion of his knee and ambulating at his baseline. - Related Data Home Medications Medication Instructions Recorded Confirmed Fluticasone/Salmeterol [Advair 1 puffs IH BIDRT 12/05/18 05/30/20 250/50mcg Diskus] Omeprazole [Omeprazole 20mg 20 mg PO DAILY 10/15/19 05/30/20 Capsule] Previous Rx's Medication Instructions R
[2020-06-18 20:44] VITALS: BP 111/72; PULSE 75; RESP 17; TEMP 37.1; O2SAT 97
== END 2020-06-18 20:53 | disposition home or self-care (01) ==
PROVIDERS: Emergency Provider Physician Assistant; PCP Emergency Medicine
DX: L02.416 Cutaneous abscess of left lower limb (principal); J44.9 Chronic obstructive pulmonary disease, unspecified; I10 Essential (primary) hypertension; F17.210 Nicotine dependence, cigarettes, uncomplicated; Z90.09 Acquired absence of other part of head and neck
CPT/HCPCS: 73562; 80048; 85025; 85651; 86140; 87040; 99283

== ENCOUNTER → 2020-11-26 14:13 | Outpatient (CLI) | payer BC, SELFPAY ==
[2020-11-26 17:10] LABS: Amphetamine/Metha Screen,Urine Negative ng/ml (<1000); Barbiturates Screen,Urine Negative ng/ml (<200)
[2020-11-26 17:11] LABS: Benzodiazepines Screen,Urine Negative ng/ml (<200)
[2020-11-26 17:12] LABS: Cannabinoid Screen,Urine Positive ng/ml (<50)
[2020-11-26 17:13] LABS: Cocaine Screen,Urine Negative ng/ml (<300)
[2020-11-26 17:14] LABS: Methadone Screen,Urine Negative ng/ml (<300)
[2020-11-26 17:15] LABS: Opiate Screen,Urine Positive ng/ml (<300)
[2020-11-26 17:17] LABS: Phencyclidine Screen,Urine Negative ng/ml (<25)
== END ==
PROVIDERS: Visit Provider Emergency Medicine
DX: G62.9 Polyneuropathy, unspecified (principal); Z79.899 Other long term (current) drug therapy
CPT/HCPCS: 80305

== ENCOUNTER → 2020-12-15 10:32 | Outpatient (CLI) | payer BC, SELFPAY ==
[2020-12-15 11:09] LABS: Basophils # 0.1 K/mm3 (0-0.2); Basophils % 1.4 % (0.1-2.0); Eosinophils # 0.2 K/mm3 (0.0-0.4); Hematocrit 49.4 % (42.0-52.0); Hemoglobin 16.1 g/dL (14.1-18.0); Lymphocytes # 2.1 K/mm3 (0.7-4.5); Lymphocytes % 28.8 % (10-50); Mean Corpuscular HGB Conc 32.6 g/dL (31.8-35.4); Mean Corpuscular Hemoglobin 31.1 pg (27.0-31.2); Mean Corpuscular Volume 95.6 fl (80-94); Mean Platelet Volume 7.3 fl (7.4-10.4); Monocytes # 0.3 K/mm3 (0.1-1.0); Monocytes % 4.6 % (1.7-9.3); Neutrophils # 4.5 K/mm3 (1.8-7.8); Neutrophils % 62.2 % (37.0-80.0); Platelet Count 206 K/mm3 (142-424); Red Blood Count 5.17 M/mm3 (4.60-6.20); White Blood Count 7.2 K/mm3 (4.8-10.8)
[2020-12-15 11:28] LABS: C-Reactive Protein 3.5 mg/L (0-4)
[2020-12-15 11:32] LABS: NT Pro Brain Natriuretic Pep. 50.2 pg/mL (0-125)
[2020-12-15 11:37] LABS: Erythrocyte Sedimentation Rate 14 mm/hr (0-20)
== END ==
PROVIDERS: Visit Provider Orthopaedic Surgery
DX: Z01.818 Encounter for other preprocedural examination (principal); I10 Essential (primary) hypertension; Z72.0 Tobacco use; Z11.52 Encounter for screening for COVID-19
CPT/HCPCS: 36415; 83880; 85025; 85651; 86140; 86328

== ENCOUNTER → 2021-01-06 08:27 | Outpatient (CLI) | payer BC, SELFPAY ==
[2021-01-06 09:48] LABS: Coronavirus 19 IgG Antibody Negative (Negative); Coronavirus 19 IgM Antibody Negative (Negative)
== END ==
PROVIDERS: Visit Provider Orthopaedic Surgery
DX: Z01.818 Encounter for other preprocedural examination (principal); Z11.52 Encounter for screening for COVID-19
CPT/HCPCS: 36415; 86328

== ENCOUNTER 2021-01-08 06:10 | Day surgery (SDC) | payer BC, SELFPAY ==
[2021-01-05 08:45] VITALS: BMI 28.4
[2021-01-07 11:57] LABS: Chloride 101 mmol/L (98-107); Sodium 136 mmol/L (136-145)
[2021-01-07 11:58] LABS: Potassium 4.4 mmoL/L (3.5-5.1)
[2021-01-07 12:00] LABS: Blood Urea Nitrogen 11 mg/dl (9-20); Creatinine Clearance Estimated 128 mL/min (50-200); Estimated Glomerular Filt Rate 115 ml/min (>60); GFR (African American) 140 ML/MIN (>60)
[2021-01-07 12:01] LABS: Calcium 9.9 mg/dl (8.4-10.2); Carbon Dioxide 27 mmol/L (22.0-30.0); Glucose 138 mg/dl (74-100)
[2021-01-08] VITALS (14 sets, daily range): BP systolic 113–152; BP diastolic 68–93; PULSE 57–94; RESP 14–18; TEMP 6.1–43; O2SAT 93–97
--- NOTE | 2021-01-08 08:19 | XR_ITS ---
PROCEDURE: XR KNEE LT 2V CLINICAL INDICATION: BURSITIS DRAINAGE IN OR COMPARISON: CR XR KNEE LT 3V from 06/18/2020 FINDINGS: Single lateral fluoroscopic image of the knee joint was obtained. No acute abnormality. Soft tissue details are limited on the current lateral view. IMPRESSION: No acute abnormality. Dictated by: Elda Raymond 01/08/2021 13:18 Elda Raymond in [facility] 01/08/2021 13:18
--- NOTE | 2021-01-08 09:14 | HMH.OPNOTE ---
Date of procedure: 01/08/21 Pre-op Diagnosis:: L knee: 1) chronic prepatellar bursitis 2) [place] Schlatter's disease Post-op Diagnosis:: L knee: 1) chronic prepatellar bursitis 2) Teo Schlatter's disease Procedure performed:: 1) excision of prepatellar bursitis L knee 2) excision of Teo Schlatter's tubercle L knee Surgeon:: Shaneka Valenzuela MD Html Developer(s):: Mary Jo Cardoza LAW LIBRARIAN:: Other (Casey Palmer) Anesthesia: LMA Estimated blood loss (mL): 10 Clinical Note:: 60-year-old gentleman with a history of [place] Schlatter's disease as a teenager and chronic prepatellar bursitis with pain over the tubercle resulting from this condition. He first presented to me in June 2020 with complaints of pain, redness and drainage in this region. 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 He does not typically wear kneepads when he does this but tries to place his weight so that it does not rest directly on the bump. He was seen in the emergency room after the drainage started, where he says the swelling was lanced with a scalpel and drainage attempted, with some purulence drained. He was given a short course of oral antibiotics and it has not drained since. I believe he has a chronic prepatellar bursitis in this region, overlying the large amount of calcification from his [place] Schlatter's, and it may have been infected at one point. Given the chronicity of his discomfort and nature of his job, I recommended surgical excision. The patient has tried to live with this and it is becoming harder for him to work with the prominence; he desires surgical excision as well, and is now at the point where he can take time off from work to recover from surgery. I discussed the plan with him, which would include excision of the prepatellar bursitis as well as removal of the [place]-Schlatters ossicle to prevent future recurrence and decrease his pain with kneeling. I discussed the risks of surgery with the patient, including but not limited to: infection, bleeding, recurrence of the bursitis, persistent discomfort and swelling in the front of the knee, numbness around the incision site, and the need for possible further surgery on the knee in the future. The patient vocalized understanding and provided informed consent for the procedure. Operative findings:: chronic prepatellar bursitis Operative note:: The patient was identified in preoperative holding and the left lower extremity marked by myself. Consent was verified with the patient and all questions answered. The decision was made to administer general anesthesia with an LMA. The patient was then taken to the OR where he was transferred to the operative table. 1g ancef were infused intravenously and general anesthesia induced. Non-sterile tourniquet was placed on the left upper thigh and the contralateral lower extremity padded and an SCD placed on this limb. Upper extremities were secured on arm boards and Patti hugger placed. The left lower extremity was then prepped and draped in the usual sterile fashion. Timeout was performed, identifying the correct patient, correct procedure and correct site. The procedure was begun by first exsanguinating the left lower extremity with an Esmarch and elevating the tourniquet to 250 mmHg. A longitudinal incision was made down the anterior aspect of the left knee, centered over the tibial tubercle at the region of the prepatellar bursitis and the chronic Teo-Schlatter's tubercle. Skin only was excised. Next, tenotomy scissors were used to develop the tissue plane between the skin and subdermal tissue versus the prepatellar bursitis. Blunt dissection was used to dissect around the bursitis and excise this, which was sent for culture. Once the bursitis was removed, which was quite sizable, the underlying calcifications were debrided. The calcifications were deep to the patellar tendon and had eroded through the tendon at its inferior
--- NOTE | 2021-01-08 10:39 | P.PN_ITS ---
[facility] Anesthesia Checklist - Patient Identification Patient Identification: Arm Band - Structural Data Admitted From: Home Planned Operative Procedure/s: I & D, prepatellar bursitis Consent for Planned Operative Procedure(s) Verified: Yes - NPO Status Verified Time NPO: 00:00 - Additional verifications Anesthesia Reactions: No Hx Blood Transfusions: No Blood Transfusion Reaction: No - Airway Assessment C-Spine Mobility Assessed: Yes TMJ Mobility Assessed: Yes Dentition: Edentulous - Neurological Assessment Level of Consciousness: Awake Hx Seizures: No Numbness or tingling in extremities: No - Anesthesia Plan Anesthesia Risk discussed: Yes Anesthesia Plan: Verified ASA Class: III Anesthesia Type: General [facility] History I have reviewed the patient's past medical history: Yes Medical History: Reports:: Chronic Obstructive Pulmonary Disease (COPD), Hypertension Denies:: Cancer, Diabetes Mellitus Type 1, Diabetes Mellitus Type 2, Internal Pacemaker, MRSA, Seizures *Have you ever received a pneumonia vaccine?: Yes *Have you received a flu vaccine this season?: No Other Medical History: Reports: Arthritis, Hoarseness, Sinus Problems, Other. Denies: Blood Transfusion Reaction Anesthesia experience/problems:: None Laterality Cases: Bilateral: Tonsillectomy, Other Other Surgeries: Yes: Colonoscopy, Hernia Repair, Other. No: Pacemaker Amputation: No Fractures: No - *Social History Last grade of school completed: High school graduate Smoking Status: Current every day smoker Tobacco Type: cigarettes # Packs/Day (cigarettes): 1 #Yrs smoked (if former smoker): 45 Alcohol Intake: current Alcohol Intake Frequency:: 0-2 drinks per day Substance Use Type: denies use *Occupational Status:: employed Housing: house Household Members: significant other *Travel in the last 8 weeks: None Family Hx:: Cancer, Heart Attack
--- NOTE | 2021-01-08 10:41 | HMH.ANESI ---
[facility] Anesthesia Record Part I Intake, IV Amount: 2,090 Estimated blood loss (mL): 0 Urine output (mL): 0 Blood Pressure: 113/68 SaO2: 95 Pulse Rate: 74 Respiratory Rate: 14 Temperature: 98.2 F Patient is:: Drowsy Stable to PACU at:: 08:46
--- NOTE | 2021-01-08 10:41 | HMH.ANESII ---
[facility] Anesthesia Record Part II Discharge Time: 09:39 Destination: Surgical Day Care (OP Surgery) PACU nurse assessment reviewed?: Yes Patient Condition:: Good Anesthesia Complications:: None Swallowing reflex intact?: Yes Cyanosis?: No Blood Pressure: 120/79 Pulse Rate: 68 Temperature: 97.8 F Mental Status: Alert & Oriented Pain level:: 6 Nausea and/or vomitting:: None Intake, IV Amount: 200
== END 2021-01-08 10:15 | disposition home or self-care (01) ==
LOC: OR 06:13
PROVIDERS: PCP Emergency Medicine; Visit Provider Orthopaedic Surgery
PROC: (CPT 27340; principal; 2021-01-08 07:30)
DX: M70.42 Prepatellar bursitis, left knee (principal); Z87.39 Personal history of other diseases of the musculoskeletal system and connective tissue; M92.522 Juvenile osteochondrosis of tibia tubercle, left leg; J44.9 Chronic obstructive pulmonary disease, unspecified; Z72.0 Tobacco use; I10 Essential (primary) hypertension
CPT/HCPCS: 27340; 27331; 73560; 76000; 80048; 87070; 87205; 96374

== ENCOUNTER → 2021-01-16 08:50 | Outpatient (CLI) | payer BC, SELFPAY ==
--- NOTE | 2021-01-16 09:10 | XR_ITS ---
PROCEDURE: XR KNEE LT 2V CLINICAL INDICATION: s/p LT knee excision Follow-up surgery COMPARISON: CR XR KNEE LT 3V from 06/18/2020 CR XR KNEE LT 2V from 01/08/2021 FINDINGS: There has been interval excision of a prominent multi segmented and unfused tibial tuberosity. There is some minimal residual calcification in the surgical bed. Mild soft tissue swelling is present in the pretibial region proximally. There is generalized vascular calcification. The knee joint itself has an unremarkable appearance aside from minimal joint space narrowing medially. IMPRESSION: Postsurgical change with excision of multiple calcific foci/prominent tibial tuberosity Dictated by: Abraham Lino MD 01/16/2021 09:43 Abraham Lino MD in [place] 01/16/2021 09:43
== END ==
PROVIDERS: PCP Emergency Medicine; Visit Provider Orthopaedic Surgery
DX: Z09 Encounter for follow-up examination after completed treatment for conditions other than malignant neoplasm (principal); M25.562 Pain in left knee
CPT/HCPCS: 73560

== ENCOUNTER → 2021-02-20 14:24 | Outpatient (CLI) | payer BC, SELFPAY ==
[2021-02-20 16:34] LABS: Amphetamine/Metha Screen,Urine Negative ng/ml (<1000)
[2021-02-20 16:35] LABS: Barbiturates Screen,Urine Negative ng/ml (<200); Benzodiazepines Screen,Urine Negative ng/ml (<200)
[2021-02-20 16:36] LABS: Cannabinoid Screen,Urine Positive ng/ml (<50); Cocaine Screen,Urine Negative ng/ml (<300)
[2021-02-20 16:37] LABS: Methadone Screen,Urine Negative ng/ml (<300)
[2021-02-20 16:38] LABS: Opiate Screen,Urine Negative ng/ml (<300)
[2021-02-20 16:39] LABS: Phencyclidine Screen,Urine Negative ng/ml (<25)
== END ==
PROVIDERS: Visit Provider Emergency Medicine
DX: Z79.899 Other long term (current) drug therapy (principal)
CPT/HCPCS: 80305

== ENCOUNTER → 2021-05-25 10:18 | Outpatient (CLI) | payer BC, SELFPAY ==
--- NOTE | 2021-05-25 10:26 | XR_ITS ---
PROCEDURE: XR KNEE RT 4V CLINICAL INDICATION: BL knee pain COMPARISON: CR XR KNEE LT 3V from 06/18/2020 CR XR KNEE LT 2V from 01/08/2021 CR XR KNEE LT 2V from 01/16/2021 FINDINGS: No fracture or dislocation. No lytic or blastic change. There is normal mineralization. Minimal osteoarthritic change at the patellofemoral joint laterally. See there are flecks of small metallic density or artifact noted at the lateral aspect of the proximal tib fib region. Vascular calcifications are noted. Other findings:None. IMPRESSION: Minimal osteoarthritic change Dictated by: Abraham Lino MD 05/25/2021 14:45 Abraham Lino MD in [place] 05/25/2021 14:45
--- NOTE | 2021-05-25 10:26 | XR_ITS ---
PROCEDURE: XR KNEE LT 4V CLINICAL INDICATION: BL knee pain This COMPARISON: CR XR KNEE LT 3V from 06/18/2020 CR XR KNEE LT 2V from 01/08/2021 CR XR KNEE LT 2V from 01/16/2021 FINDINGS: No fracture or dislocation. No lytic or blastic change. There is normal mineralization. The joint spaces are well-preserved. No significant degenerative/arthritic changes. No erosive changes evident. Other findings: mild vascular calcification IMPRESSION: No acute findings. Dictated by: Abraham Lino MD 05/25/2021 14:46 Abraham Lino MD in [place] 05/25/2021 14:46
--- NOTE | 2021-05-25 10:26 | XR_ITS ---
PROCEDURE: XR FOOT WT BEARING RT 3V CLINICAL INDICATION: pain COMPARISON: CR XR FOOT WT BEARING LT 3V from 08/30/2019 CR XR FOOT WT BEARING RT 3V from 08/30/2019 FINDINGS: No fracture or dislocation. No lytic or blastic change. There is normal mineralization. Osteoarthritic changes are present at the 1st MTP joint with prominent bony spurring anteriorly similar to the previous exam. There is a prominent os trigonum and there is pes planus. Other findings:None. IMPRESSION: Pes planus with osteoarthritic changes in prominent bony spurring at the 1st MTP joint Dictated by: Abraham Lino MD 05/25/2021 14:37 Abraham Lino MD in [place] 05/25/2021 14:37
--- NOTE | 2021-05-25 10:26 | XR_ITS ---
PROCEDURE: XR FOOT WT BEARING LT 3V CLINICAL INDICATION: pain COMPARISON: CR XR FOOT WT BEARING LT 3V from 08/30/2019 CR XR FOOT WT BEARING RT 3V from 08/30/2019 FINDINGS: No fracture or dislocation. No lytic or blastic change. There is normal mineralization. Mild osteoarthritis at the 1st MTP joint. Pes planus. There is a small bony spur along the anterior aspect and distal aspect of the 1st metatarsal. Mildly prominent os trigonum Other findings:None. IMPRESSION: Pes planus with mild osteoarthritis at the 1st MTP joint Dictated by: Abraham Lino MD 05/25/2021 14:38 Abraham Lino MD in [place] 05/25/2021 14:38
== END ==
PROVIDERS: PCP Emergency Medicine; Visit Provider Orthopaedic Surgery
DX: M25.561 Pain in right knee (principal); M25.562 Pain in left knee; M20.21 Hallux rigidus, right foot; M20.41 Other hammer toe(s) (acquired), right foot; M20.42 Other hammer toe(s) (acquired), left foot; M20.5X1 Other deformities of toe(s) (acquired), right foot
CPT/HCPCS: 73564; 73630

== ENCOUNTER → 2021-05-26 11:23 | Outpatient (CLI) | payer BC, SELFPAY ==
--- NOTE | 2021-05-26 11:25 | XR_ITS ---
PROCEDURE: XR HIP LT 2-3V W/PELVIS XR hip right two views CLINICAL INDICATION: BL hip pain COMPARISON: CR XR HIP RT 2-3V W/PELVIS from 05/26/2021 FINDINGS: There are moderate to severe osteoarthritic changes of the left hip with loss of joint space superiorly and osteophyte formation. There is a 7 mm calcific density along the lateral aspect of the acetabulum and may be related to a loose body or slightly displaced os acetabuli. There are mild osteoarthritic changes of the right hip with symmetric loss of joint space and acetabular osteophyte formation. No acute fracture or dislocation. No lytic or blastic change. IMPRESSION: Bilateral osteoarthritis of the hips left more severe than right Dictated by: Abraham Lino MD 05/26/2021 13:14 Abraham Lino MD in [place] 05/26/2021 13:14
== END ==
PROVIDERS: PCP Emergency Medicine; Visit Provider Orthopaedic Surgery
DX: M25.551 Pain in right hip (principal); M25.552 Pain in left hip
CPT/HCPCS: 73502

== ENCOUNTER → 2021-09-14 11:37 | Outpatient (CLI) | payer BC, SELFPAY ==
--- NOTE | 2021-09-14 11:55 | XR_ITS ---
PROCEDURE: XR CHEST 2V CLINICAL HISTORY: HIGH BLOOD PRESSURE, PREOPERATIVE COMPARISON: CR CXR2V XR chest 2V from 10/09/2018 FINDINGS: The cardiomediastinal silhouette and pulmonary vascularity are within normal limits. The lungs are clear without infiltrates, suspicious nodules, or pleural effusions. No acute bony abnormalities. IMPRESSION: No acute findings. Dictated by: Abraham Lino MD 09/14/2021 15:49 Abraham Lino MD in [place] 09/14/2021 15:49
[2021-09-14 12:23] LABS: Basophils # 0.1 K/mm3 (0-0.2); Basophils % 0.8 % (0.1-2.0); Eosinophils # 0.3 K/mm3 (0.0-0.4); Eosinophils % 3.2 % (0.1-12.0); Hemoglobin 15.6 g/dL (14.1-18.0); Lymphocytes # 2.4 K/mm3 (0.7-4.5); Lymphocytes % 29.6 % (10-50); Mean Corpuscular HGB Conc 34.7 g/dL (31.8-35.4); Mean Corpuscular Hemoglobin 32.7 pg (27.0-31.2); Mean Corpuscular Volume 94.3 fl (80-94); Mean Platelet Volume 7.7 fl (7.4-10.4); Monocytes # 0.5 K/mm3 (0.1-1.0); Monocytes % 5.8 % (1.7-9.3); Neutrophils # 4.8 K/mm3 (1.8-7.8); Neutrophils % 60.6 % (37.0-80.0); Platelet Count 182 K/mm3 (142-424); Red Blood Count 4.77 M/mm3 (4.60-6.20); White Blood Count 7.9 K/mm3 (4.8-10.8)
--- NOTE | 2021-09-14 12:38 | ECG_ITS ---
APPROVED REPORT Exam: Resting ECG HR:66 bpm ECG Measurements Heart Rate 66 AXES VT 136 P 46 QRSd 100 QRS -15 QT 388 T 37 QTc 406 Conclusion Sinus rhythm with occasional premature ventricular complexes Otherwise normal ECG Electronically signed by : Phil Schrader MD 09/14/2021 21:04:15
[2021-09-14 13:05] LABS: Alanine Aminotransferase 48 U/L (12-78); Albumin Level 4.4 g/dl (3.5-5.0); Albumin/Globulin Ratio 1.7 (1.1-1.8); Alkaline Phosphatase 66 U/L (38-126); Anion Gap 8.3 mEq/L (5-15); Aspartate Amino Transferase 49 U/L (17-59); Bilirubin,Total 0.5 mg/dl (0.2-1.3); Blood Urea Nitrogen 10 mg/dl (9-20); Calcium 9.5 mg/dl (8.4-10.2); Carbon Dioxide 31 mmol/L (22.0-30.0); Chloride 101 mmol/L (98-107); Estimated Glomerular Filt Rate 115 ml/min (>60); GFR (African American) 139 ML/MIN (>60); Globulin 2.6 g/dL (1.3-3.2); Glucose 121 mg/dl (74-100); Potassium 4.3 mmoL/L (3.5-5.1); Sodium 136 mmol/L (136-145)
[2021-09-14 22:48] LABS: 25-OH Vitamin D, Total 25.9 ng/mL (30-100)
== END ==
PROVIDERS: Visit Provider Podiatrist
DX: Z01.818 Encounter for other preprocedural examination (principal); M20.21 Hallux rigidus, right foot; E55.9 Vitamin D deficiency, unspecified; Z20.822 Contact with and (suspected) exposure to COVID-19
CPT/HCPCS: 36415; 71046; 80053; 82306; 85025; 93005; C9803; U0003; U0005

== ENCOUNTER 2021-09-16 06:02 | Day surgery (SDC) | payer BC, SELFPAY ==
[2021-09-11 08:45] VITALS: BMI 27.4
[2021-09-16] VITALS (9 sets, daily range): BP systolic 95–133; BP diastolic 56–87; PULSE 66–89; RESP 13–20; TEMP 36.2–37.4; O2SAT 92–97
--- NOTE | 2021-09-16 08:15 | HMH.ANESCL ---
[facility] Anesthesia Checklist - Patient Identification Patient Identification: Arm Band - Structural Data Admitted From: Home Planned Operative Procedure/s: Right 1st MPJ Arthrodesis Consent for Planned Operative Procedure(s) Verified: Yes Verified Documents: Surgical Consent, History and Physical - NPO Status Verified Time NPO: 00:00 - Additional verifications Anesthesia Reactions: No Hx Blood Transfusions: No Blood Transfusion Reaction: No - Airway Assessment C-Spine Mobility Assessed: Yes (mp2) TMJ Mobility Assessed: Yes Dentition: Edentulous - Neurological Assessment Level of Consciousness: Awake, Alert - Anesthesia Plan Anesthesia Risk discussed: Yes Anesthesia Plan: Verified ASA Class: III Anesthesia Type: General w/block [facility] History I have reviewed the patient's past medical history: Yes Medical History: Reports:: Chronic Obstructive Pulmonary Disease (COPD), Gastroesophageal Reflux Disease(GERD), Hypertension Denies:: Cancer, Diabetes Mellitus Type 1, Diabetes Mellitus Type 2, Internal Pacemaker, MRSA, Seizures *Have you ever received a pneumonia vaccine?: No *Have you received a flu vaccine this season?: Yes Other Medical History: Reports: Arthritis, Hoarseness, Sinus Problems, Other. Denies: Blood Transfusion Reaction Anesthesia experience/problems:: nac Laterality Cases: Left: Arthroscopy Knee, Bilateral: Tonsillectomy, Other Other Surgeries: Yes: Colonoscopy, Hernia Repair, Other. No: Pacemaker Amputation: No Fractures: No - *Social History Last grade of school completed: High school graduate Smoking Status: Current every day smoker Tobacco Type: cigarettes # Packs/Day (cigarettes): 1 #Yrs smoked (if former smoker): 45 Alcohol Intake: current Alcohol Intake Frequency:: 0-2 drinks per day Substance Use Type: marijuana *Occupational Status:: employed Housing: house Household Members: significant other *Travel in the last 8 weeks: None Family Hx:: No significant family history
--- NOTE | 2021-09-16 08:19 | SUR.OPER ---
family updated at this time
--- NOTE | 2021-09-16 10:28 | XR_ITS ---
PROCEDURE: XR FOOT RT 2V CLINICAL INDICATION: MPJ FUSION COMPARISON: CR XR FOOT WT BEARING LT 3V from 08/30/2019 CR XR FOOT WT BEARING RT 3V from 08/30/2019 CR XR FOOT WT BEARING LT 3V from 05/25/2021 CR XR FOOT WT BEARING RT 3V from 05/25/2021 FINDINGS: Fluoroscopy time: 45 seconds. Images submitted demonstrates bone plate fusion the 1st MTP joint with good alignment. Other findings:None. IMPRESSION: Status post fusion 1st MTP joint with fluoroscopic assistance Dictated by: Abraham Lino MD 09/16/2021 15:59 Abraham Lino MD in [facility] 09/16/2021 15:59
--- NOTE | 2021-09-16 11:00 | XR_ITS ---
PROCEDURE: XR FOOT RT MIN 3V CLINICAL INDICATION: Post op fusion COMPARISON: CR XR FOOT WT BEARING RT 3V from 08/30/2019 CR XR FOOT WT BEARING LT 3V from 05/25/2021 CR XR FOOT WT BEARING RT 3V from 05/25/2021 CR XR FOOT RT 2V from 09/16/2021 FINDINGS: Status post fusion of the right 1st metatarsophalangeal joint. Medial bone plate with cortical screws and additional oblique screw through the 1st MTP once again noted. Artifact is present from overlying cast decreasing bony detail on the AP and oblique view. IMPRESSION: Good alignment status post fusion at the 1st MTP joint Dictated by: Abraham Lino MD 09/16/2021 14:04 Abraham Lino MD in OV 09/16/2021 14:04
--- NOTE | 2021-09-16 11:04 | HMH.ANESI ---
[facility] Anesthesia Record Part I Intake, IV Amount: 1,200 Estimated blood loss (mL): 20 Urine output (mL): 0 Blood Pressure: 127/83 SaO2: 92 Pulse Rate: 88 Respiratory Rate: 16 Temperature: 99.2 F Patient is:: Drowsy, Stable Stable to PACU at:: 11:00
--- NOTE | 2021-09-16 11:27 | HMH.OPNOTE ---
Date of procedure: 09/21/21 Pre-op Diagnosis:: 1. Right hallux rigidus 2. Right foot osteoarthritis 3. Right exostosis 4. Gastroc equinus 5. Tobacco abuse 6. Vitamin D deficiency Post-op Diagnosis:: Same Procedure performed:: 1. Right 1st MPJ arthrodesis 2. Right calcaneal autograft bone harvest 3. Right foot exostectomy 4. Right gastroc recession 5. Application of posterior splint Surgeon:: Yuliya Edward DPM [employer] MACHINE FEEDER:: Keny Dickey Anesthesia: GETA, regional (right popliteal nerve block) Estimated blood loss (mL): 20 Clinical Note:: Is a 61-year-old male who has low vitamin D and does smoke. Indications for surgery include progressive worsening arthritic pain in the foot. X-rays show decreased joint space to the first MPJ. There is dorsal exostosis noted to both first metatarsals, right worse than left. Spurring consistent with hallux rigidus and osteoarthritis noted. Degenerative changes noted throughout the foot. There is decrease in the medial arch noted bilaterally. The patient has tried modification of activity, modification of shoe gear, taping, strapping, inserts, ice, elevation, NSAIDs, steroid injection, stretching/physical therapy. After a long discussion with the patient in regards to the conservative versus surgical treatment for the arthritic great toe deformity, the patient has elected to proceed with surgery because they have failed conservative treatment and continue to have pain and worsening symptoms affecting daily activities. The patient has been instructed on the planned procedure, all risk versus benefits of the procedure to include bleeding, infection, nerve and blood vessel damage, need for further surgery, delay in healing of soft tissue or bone, failure of bones to heal, non-union, mal-union, prolonged pain and recovery, CRPS/RSD, DVT and anesthetic complications. We discussed the increased risk of his tobacco abuse in detail, and the increased risk of bone and wound healing with increased infection risk. He currently smokes 1 pack a day. We will test the levels and advised patient to decrease by 5 cigarettes daily. No guarantees were given. All questions fully answered. The patient verbalized understanding and agreed to proceed with surgery. Consent to be obtained next visit. Necessary labs and pre-op testing: cbc, cmp, nicotine/cotinine, vitamin D, ekg, cxr, covid. Rx for Percocet, Zofran, Motrin. Was given fracture boot in office and has crutches. We discussed risk of deep vein thrombosis. Discussed increased risk of skin and bone healing secondary to vitamin D deficiency and smoking. Discussed smoking cessation and using aspirin postoperatively. PCP, Dr. Greco for medical clearance: tobacco abuse, COPD-inhaler, neuropathy. It is medically necessary the patient have a walker. He has used crutches in the past after knee surgery and was a fall risk. He is followed with crutches. Patient is to be strict nonweightbearing postoperatively for his right foot surgery. Walker is medically necessary. Operative findings:: Large dorsal exostosis noted to the right first MPJ. New bruising noted to dorsal 2-3rd toes and MPs, secondary to recent crush. Intra-op imaging showed new acute fractures. Metatarsal head had significant spurring and several loose bodies noted to the lateral aspect of the joint. The proximal phalanx medially had spurring noted. Gastroc equinus appreciated. Bone quality was soft likely secondary to vitamin D deficiency and significant arthritic changes. The case did take an extra 45 minutes longer than normal due to the poor bone quality and the use of an autograft calcaneal harvest due to comorbidities. Operative note:: On this date and time patient was deemed an appropriate surgical candidate. With informed consent signed, the patient was taken to the operating theater after regional popliteal nerve block by anesthesia. Patient was positioned supine. General anesthesia was induced. IV Ancef given. Tourniquet was appl
--- NOTE | 2021-09-17 09:02 | P.PN_ITS ---
[facility] Anesthesia Record Part II Discharge Time: 11:30 Destination: Surgical Day Care (OP Surgery) PACU nurse assessment reviewed?: Yes Patient Condition:: Good Anesthesia Complications:: None Swallowing reflex intact?: Yes Cyanosis?: No Blood Pressure: 95/63 Pulse Rate: 82 Temperature: 98.3 F Mental Status: Alert & Oriented Pain level:: 0 Nausea and/or vomitting:: None Intake, IV Amount: 0
[2021-09-17 09:03] VITALS: BP 95/63; PULSE 82; TEMP 36.8
== END 2021-09-16 12:01 | disposition home or self-care (01) ==
LOC: OR 06:03
PROVIDERS: PCP Emergency Medicine; Visit Provider Podiatrist
PROC: (CPT 28750; principal; 2021-09-16 07:30)
DX: M20.41 Other hammer toe(s) (acquired), right foot (principal); M20.21 Hallux rigidus, right foot; M62.461 Contracture of muscle, right lower leg; M21.611 Bunion of right foot; F17.210 Nicotine dependence, cigarettes, uncomplicated; J44.9 Chronic obstructive pulmonary disease, unspecified; I10 Essential (primary) hypertension; M19.071 Primary osteoarthritis, right ankle and foot; M20.5X1 Other deformities of toe(s) (acquired), right foot; M76.821 Posterior tibial tendinitis, right leg; M21.6X1 Other acquired deformities of right foot; M77.51 Other enthesopathy of right foot and ankle; G62.9 Polyneuropathy, unspecified; E55.9 Vitamin D deficiency, unspecified
CPT/HCPCS: 28750; 27687; 28288; 73620; 73630; 76000; 96374; C1713; C1762; J2405

== ENCOUNTER → 2021-10-21 10:07 | Outpatient (CLI) | payer BC, SELFPAY ==
--- NOTE | 2021-10-21 10:11 | XR_ITS ---
FINAL REPORT CLINICAL HISTORY: Post-op COMPARISON: September 16, 2021 FINDINGS: RIGHT FOOT Three views of the right foot demonstrate no acute fracture or dislocation. There are postoperative changes from fusion of the 1st MTP joint. The hardware is stable. There are mild degenerative changes. The soft tissues are unremarkable. IMPRESSION: Postoperative and degenerative changes as described. Reviewed, Interpreted and Dictated by Armin Nicholson III, MD Transcribed by Lorenza Alvarez Authenticated by Armin Nicholson III, MD on 10/21/2021 12:50:[address] [facility]
== END ==
PROVIDERS: PCP Emergency Medicine; Visit Provider Podiatrist
DX: Z98.890 Other specified postprocedural states (principal); M79.671 Pain in right foot; T81.31XD Disruption of external operation (surgical) wound, not elsewhere classified, subsequent encounter
CPT/HCPCS: 73630

== ENCOUNTER → 2021-11-18 10:21 | Outpatient (CLI) | payer BC, SELFPAY ==
--- NOTE | 2021-11-18 10:25 | XR_ITS ---
FINAL REPORT CLINICAL HISTORY: post-op F/U RT FOOT COMPARISON: October 21, 2021 FINDINGS: RIGHT FOOT: Three views of the right foot were obtained. There is postoperative change at the 1st MTP joint with a screw plate and multiple screws. Bony alignment is stable. There is no acute fracture or dislocation. There are mild degenerative changes in the foot. There are soft tissue calcifications adjacent to the 1st MTP joint. There is a small posterior calcaneal spur. IMPRESSION: Postoperative changes. Bony alignment stable. Reviewed, Interpreted and Dictated by Armin Nicholson III, MD Transcribed by Quinten Pierson Authenticated by Armin Nicholson III, MD on 11/18/2021 11:35:21 AM [facility]
== END ==
PROVIDERS: PCP Emergency Medicine; Visit Provider Podiatrist
DX: M79.671 Pain in right foot (principal); G89.18 Other acute postprocedural pain; Z98.890 Other specified postprocedural states
CPT/HCPCS: 73630

== ENCOUNTER → 2021-11-24 09:48 | Outpatient (CLI) | payer BC, SELFPAY ==
--- NOTE | 2021-11-24 09:51 | XR_ITS ---
FINAL REPORT CLINICAL HISTORY: left hip pain COMPARISON: May 26, 2021 FINDINGS: LEFT HIP Two weight-bearing views of the left hip including an AP pelvis demonstrate no acute fracture or dislocation. There is severe left hip degenerative change with severe superior joint space narrowing. There is a presumed loose body adjacent to the superior femoral head which is stable. The visualized bony structures are well aligned. IMPRESSION: The stable exam since prior. Reviewed, Interpreted and Dictated by Armin Nicholson III, MD Transcribed by Lorenza Alvarez Authenticated by Armin Nicholson III, MD on 11/24/2021 11:54:[address] [facility]
== END ==
PROVIDERS: PCP Emergency Medicine; Visit Provider Orthopaedic Surgery
DX: M25.552 Pain in left hip (principal)
CPT/HCPCS: 73502

== ENCOUNTER → 2022-03-16 08:58 | Outpatient (CLI) | payer BC, SELFPAY ==
--- NOTE | 2022-03-16 09:03 | XR_ITS ---
FINAL REPORT CLINICAL HISTORY: postop views surgery sep 18 COMPARISON: November 18, 2021 FINDINGS: RIGHT FOOT Three views of the right foot demonstrate no acute fracture or dislocation. There are postoperative changes from fusion of the 1st metatarsal-phalangeal joint. The hardware appears stable. There is increased bone formation at the 1st metatarsal-phalangeal joint. There is a small posterior calcaneal spur. The soft tissues are unremarkable. IMPRESSION: Postoperative changes as above, hardware appears stable. Reviewed, Interpreted and Dictated by Armin Nicholson III, MD Transcribed by Lorenza Alvarez Authenticated and . [facility]
== END ==
PROVIDERS: PCP Emergency Medicine; Visit Provider Podiatrist
DX: G89.18 Other acute postprocedural pain (principal); Z98.890 Other specified postprocedural states; M79.671 Pain in right foot
CPT/HCPCS: 73630

== ENCOUNTER → 2022-03-31 08:47 | Outpatient (CLI) | payer BC, SELFPAY ==
--- NOTE | 2022-03-31 08:48 | MR_ITS ---
FINAL REPORT CLINICAL HISTORY: right ankle instability, pain. SURGERY ON RIGHT FOOT AND ANKLE SEP 2021. ENTIRE ANKLE PAIN WITH SWELLING. FINDINGS: Multiplanar MR imaging of the right ankle was performed without contrast. There is mild degenerative change. The bony structures are intact without evidence of fracture, bone bruise or marrow edema. There is an osteochondral lesion at the lateral talar dome measuring 8 mm in AP diameter. The anterior talofibular ligament has an abnormal appearance consistent with tear. There is thinning of the calcaneal fibular ligament which is likely a chronic partial tear. There are postoperative changes of the calcaneal tuberosity laterally. There is peroneus longus and brevis and posterior tibial tenosynovitis. There is a defect in the Achilles tendon centered 10 cm from insertion with a gap of approximately 4 cm. It is uncertain if this represents a chronic high grade tear or prior postoperative change. A small portion of the tendon may be intact versus postoperative change. The posterior plantar aponeurosis is intact. A small joint effusion is seen. The musculature is intact. There is no evidence of soft tissue mass or cyst. IMPRESSION: Abnormal appearance of the anterior talofibular ligament consistent with tear. Findings in the Achilles tendon may represent chronic high-grade tear or postoperative change. Tenosynovitis of the peroneus longus and brevis and posterior tibia tendons. Reviewed, Interpreted and Dictated by Armin Nicholson III, MD Transcribed by Lisa Dorman Authenticated and [facility]
== END ==
PROVIDERS: PCP Emergency Medicine; Visit Provider Podiatrist
DX: M25.571 Pain in right ankle and joints of right foot (principal); M25.371 Other instability, right ankle; M76.71 Peroneal tendinitis, right leg
CPT/HCPCS: 73721

== ENCOUNTER → 2022-08-13 09:48 | Outpatient (CLI) | payer BC, SELFPAY ==
--- NOTE | 2022-08-13 09:54 | XR_ITS ---
FINAL REPORT CLINICAL HISTORY: pain in hands FINDINGS: 3 views of the left hand were obtained. There is no acute fracture or dislocation. There is chronic deformity of the 5th metacarpal that may be sequela of prior fracture. There are mild degenerative changes. IMPRESSION: Mild degenerative change. Reviewed, Interpreted and Dictated by Armin Nicholson III, MD Transcribed by Quinten Pierson Authenticated and [facility]
--- NOTE | 2022-08-13 09:54 | XR_ITS ---
FINAL REPORT CLINICAL HISTORY: pain in rt hand FINDINGS: 3 views of the right hand were obtained. There is no acute fracture or dislocation. There are moderate degenerative changes at the 1st CMC joint. There are mild degenerative changes elsewhere. There is a chronic calcification adjacent to the distal pole of the scaphoid. IMPRESSION: Mild and moderate degenerative changes. Reviewed, Interpreted and Dictated by Armin Nicholson III, MD Transcribed by Quinten Pierson Authenticated and [facility]
== END ==
PROVIDERS: PCP Emergency Medicine; Visit Provider Emergency Medicine
DX: R52 Pain, unspecified (principal); M79.642 Pain in left hand; M79.641 Pain in right hand; M79.89 Other specified soft tissue disorders
CPT/HCPCS: 73130

== ENCOUNTER 2022-09-17 09:00 | Outpatient (RCR) | payer BC, SELFPAY ==
--- NOTE | 2022-08-24 14:58 | HMH.PTOPEV ---
PT Outpatient Evaluation Rehab PT Outpatient Evaluation Start: 08/24/22 14:34 Freq: Status: Active Protocol: Document 08/24/22 14:35 BEBETO (Rec: 08/24/22 14:58 BEBETO [id number]) E-signed By Bal Mcknight, PT Outpatient Therapy Subjective History Subjective History Pt reports h/o chronic right ankle pain for 'many years', reports ankle sx. in for right achilles release, 1st MPJ fusion. Pt reports more recently global right ankle pain, more severe in posterior/achilles area, as well as heel pain, all exacerbated w/wt. bearing activities. Pt reports recent right ankle injection 'has improved symptoms a fair amount, but I'm not sure how long it'll last.' Chief Complaint Pain,Stiff,Weakness Symptom Type Ache,Dull Symptoms Relieved By Rest/Positioning,Ice Symptoms Aggravated By Standing,Physical Activity, Walking Prior Functional Limitations Standing,Squatting,Walking, Stairs Current Functional Limitations Standing,Squatting,Walking, Stairs Symptom Description Constant but Variable Level of pain today (0-10) 6 Pain scale - at its best (0-10) 5 Pain scale - at its worst (0-10) 10 Ankle/Foot Eval Gait Observation General Gait Pattern Observation Antalgic Gait,Wide Based Gait Assistive Device Ambulation Assistive Device None Palpation Tenderness right Ankle/Foot Palpation Findings Tenderness Ankle/Foot Palpation Overall Comment 3/4 achilles insertion, achilles tendon, plantar fascia insertion ROM Ankle/Foot Dorsiflexion w/Knee Extended 0-7 Active Range Motion (degrees) Ankle/Foot Plantar Flexion Active Range 0-25 of Motion (degrees) Ankle/Foot Eversion Active Range of 0-18 Motion (degrees) Ankle/Foot Inversion Active Range of 0-25 Motion (degrees) Ankle/Foot ROM Limitations Soft Tissue Tightness MMT Ankle Dorsiflexion Strength Grade 4- Good- Ankle Plantarflexion Strength Grade 4- Good- Foot Eversion Strength Grade 4- Good- Foot Inversion Strength Grade 3+ Fair+ Outpatient Therapy Assessment Impairments Problems/Impairmments Palpation Tenderness,Impaired Range of Motion,Impaired Strength,Impaired G
== END 2022-09-17 09:05 | disposition home or self-care (01) ==
LOC: PT 09:00
PROVIDERS: PCP Emergency Medicine; Visit Provider Podiatrist
DX: M76.61 Achilles tendinitis, right leg (principal); M25.371 Other instability, right ankle
CPT/HCPCS: 97010; 97014; 97110; 97112; 97163; G0283

== ENCOUNTER → 2022-10-29 10:50 | Outpatient (CLI) | payer BC, SELFPAY ==
--- NOTE | 2022-10-29 10:57 | XR_ITS ---
FINAL REPORT CLINICAL HISTORY: sx Sep 18, 2021. Pain from right knee down into right foot. Ligament torn during surgery. Loss of muscle in leg. COMPARISON: 03/16/2022 FINDINGS: AP, oblique and lateral views of the right foot were obtained. Again seen are postoperative changes of the 1st MTP joint. The hardware is intact and unchanged. There is no acute fracture. There is multi joint degenerative disease which appears stable. No acute soft tissue abnormalities are seen. IMPRESSION: Stable postoperative and degenerative changes with no acute bony abnormality. Reviewed, Interpreted and Dictated by Candy Salazar MD Transcribed by Laney Leach Authenticated and [facility]
--- NOTE | 2022-10-29 10:57 | XR_ITS ---
FINAL REPORT CLINICAL HISTORY: sx Sep 18, 2021. Pain from right knee down into right foot. Ligament torn during surgery. Loss of muscle in leg. FINDINGS: AP, oblique, and lateral views of the right ankle were obtained. There is no prior exam for comparison. There is a calcification distal to the medial malleolus which may represent an old avulsion fracture fragment. No acute fracture is seen. Degenerative changes are seen. There is no acute soft tissue abnormality. IMPRESSION: No acute osseous abnormality of the right ankle. Reviewed, Interpreted and Dictated by Candy Salazar MD Transcribed by Laney Leach Authenticated and [facility]
== END ==
PROVIDERS: PCP Emergency Medicine; Visit Provider Podiatrist
DX: M25.571 Pain in right ankle and joints of right foot (principal); M25.371 Other instability, right ankle; M72.2 Plantar fascial fibromatosis; G89.29 Other chronic pain
CPT/HCPCS: 73610; 73630

== ENCOUNTER → 2022-12-07 13:25 | Outpatient (POV) | payer BC, SELFPAY | PROVIDERS: Visit Provider Dermatology | DX: Z00.00 Encounter for general adult medical examination without abnormal findings (principal) ==

== ENCOUNTER → 2023-07-20 08:40 | Outpatient (CLI) | payer BC, SELFPAY ==
[2023-07-15 17:03] LABS: Barbiturates Screen,Urine Negative ng/ml (<200)
[2023-07-15 17:04] LABS: Benzodiazepines Screen,Urine Negative ng/ml (<200)
[2023-07-15 17:05] LABS: Cannabinoid Screen,Urine Positive ng/ml (<50)
[2023-07-15 17:06] LABS: Cocaine Screen,Urine Negative ng/ml (<300)
[2023-07-15 17:07] LABS: Methadone Screen,Urine Negative ng/ml (<300); Opiate Screen,Urine Negative ng/ml (<300)
[2023-07-15 17:09] LABS: Phencyclidine Screen,Urine Negative ng/ml (<25)
[2023-07-15 17:14] LABS: Amphetamine/Metha Screen,Urine Negative ng/ml (<1000)
[2023-07-20 09:27] LABS: Basophils # 0.1 K/mm3 (0-0.2); Basophils % 0.8 % (0.1-2.0); Eosinophils # 0.5 K/mm3 (0.0-0.4); Eosinophils % 6.5 % (0.1-12.0); Hematocrit 46.3 % (42.0-52.0); Hemoglobin 16.2 g/dL (14.1-18.0); Lymphocytes # 1.9 K/mm3 (0.7-4.5); Lymphocytes % 26.5 % (10-50); Mean Corpuscular HGB Conc 34.9 g/dL (31.8-35.4); Mean Corpuscular Hemoglobin 33.5 pg (27.0-31.2); Mean Corpuscular Volume 95.9 fl (80-94); Mean Platelet Volume 7.8 fl (7.4-10.4); Monocytes # 0.4 K/mm3 (0.1-1.0); Monocytes % 5.2 % (1.7-9.3); Neutrophils # 4.4 K/mm3 (1.8-7.8); Platelet Count 187 K/mm3 (142-424); Red Blood Count 4.83 M/mm3 (4.60-6.20); Red Cell Distribution Width 13.1 % (11.5-17.5); White Blood Count 7.3 K/mm3 (4.8-10.8)
[2023-07-20 09:47] LABS: Alanine Aminotransferase 31 U/L (12-78); Albumin Level 4.7 g/dl (3.5-5.0); Albumin/Globulin Ratio 1.6 (1.1-1.8); Alkaline Phosphatase 78 U/L (38-126); Anion Gap 13.5 mEq/L (5-15); Aspartate Amino Transferase 33 U/L (17-59); Bilirubin,Total 0.6 mg/dl (0.2-1.3); Blood Urea Nitrogen 9 mg/dl (9-20); Calcium 9.6 mg/dl (8.4-10.2); Carbon Dioxide 32 mmol/L (22.0-30.0); Chloride 98 mmol/L (98-107); Chol/HDL Ratio 6.8 (1-3.5); Cholesterol 178 mg/dl (140-200); Estimated Glomerular Filt Rate 114 ml/min (>60); GFR (African American) 138 ML/MIN (>60); Glucose 123 mg/dl (74-100); HDL Cholesterol 26 mg/dl (40-60); Potassium 4.5 mmoL/L (3.5-5.1); Sodium 139 mmol/L (136-145); Total Protein,Serum 7.7 g/dl (6.3-8.2); Triglycerides 215 mg/dl (30-150); VLDL Cholesterol 43 mg/dL (0-40)
[2023-07-20 09:59] LABS: Direct LDL Cholesterol 109.23 mg/dL (100-129)
[2023-07-20 10:05] LABS: T4 (Thyroxine) 9.2 ug/dl (5.53-11.0)
[2023-07-20 10:07] LABS: 25-OH Vitamin D, Total 52.6 ng/mL (30-100)
[2023-07-20 10:18] LABS: Prostate Specific Ag Screen 0.4 ng/ml (0.0-4.0); Thyroid Stimulating Hormone 1.29 uIU/mL (0.465-4.68)
== END ==
PROVIDERS: PCP Emergency Medicine; Visit Provider Emergency Medicine
DX: I10 Essential (primary) hypertension (principal); G89.29 Other chronic pain; M25.552 Pain in left hip; Z68.27 Body mass index [BMI] 27.0-27.9, adult; Z72.0 Tobacco use; E66.9 Obesity, unspecified; Z12.5 Encounter for screening for malignant neoplasm of prostate
CPT/HCPCS: 36415; 80053; 80061; 80305; 82306; 84436; 84443; 85025; G0103

== ENCOUNTER → 2023-08-25 13:42 | Outpatient (CLI) | payer BC, SELFPAY ==
--- NOTE | 2023-08-25 13:46 | MR_ITS ---
FINAL REPORT TECHNIQUE: Multiplanar imaging of the right ankle was obtained. CLINICAL HISTORY: PAIN IN RIGHT ANKLE. PATIENT STATES THAT HE HAD SURGERY ON HIS FOOT SEVERAL MONTHS AGO AND SINCE THEN HAS HAD ANKLE PAIN. PAIN STARTS AT THE HEEL AND RADIATES ALL AROUND ANKLE JOINT. COMPARISON: Right ankle MRI from 03-31-2022 FINDINGS: The sagittal images, the Achilles tendon has an abnormal appearance. The tendon appears diffusely thickened. Previously noted tendon is gap at the superior extent of the tendon is less evident but this may simply be related to a restricted [id number]. On the axial images, bulbous tenderness thickening is seen at the level of the musculotendinous junction. Plantar fascia appears intact. Tiny signal abnormality is identified in the medial talar dome, consistent with a small osteochondral lesion. This finding is stable as compared to previous, best seen on image #16 of series 8. On the axial images, there is again noted to be some irregularity in the region of the anterior talofibular ligament, probably related to chronic partial tear. There is thinning of the calcaneofibular ligament. Previously noted small amount of fluid within the peroneal tendon sheaths and within the posterior tibial tendon sheath has nearly resolved. Minimal changes of posterior tibial tenosynovitis are seen. IMPRESSION: 1. Abnormal appearance of the Achilles tendon, particularly in the region of the musculotendinous junction, findings are thought likely related to sequela of prior high-grade partial tear or prior surgery. Please correlate clinically. 2. Irregularity of the anterior talofibular ligament, consistent with partial tear. Findings similar to previous. 3. Mild changes of posterior tibial tenosynovitis, improved from previous. 4. Small osteochondral lesion in the medial talar dome, stable. Authenticated and [facility]
== END ==
PROVIDERS: PCP Emergency Medicine; Visit Provider Orthopaedic Surgery
DX: M25.571 Pain in right ankle and joints of right foot (principal)
CPT/HCPCS: 73721

== ENCOUNTER → 2023-09-26 11:53 | Outpatient (CLI) | payer BC, SELFPAY ==
[2023-09-26 12:04] LABS: Alanine Aminotransferase 37 U/L (12-78); Albumin Level 4.4 g/dl (3.5-5.0); Albumin/Globulin Ratio 1.6 (1.1-1.8); Alkaline Phosphatase 83 U/L (38-126); Anion Gap 10.4 mEq/L (5-15); Aspartate Amino Transferase 46 U/L (17-59); Bilirubin,Total 0.4 mg/dl (0.2-1.3); Blood Urea Nitrogen 12 mg/dl (9-20); Calcium 8.9 mg/dl (8.4-10.2); Carbon Dioxide 26 mmol/L (22.0-30.0); Chloride 106 mmol/L (98-107); Chol/HDL Ratio 5.8 (1-3.5); Cholesterol 181 mg/dl (140-200); Estimated Glomerular Filt Rate 137 ml/min (>60); GFR (African American) 165 ML/MIN (>60); Globulin 2.7 g/dL (1.3-3.2); Glucose 107 mg/dl (74-100); HDL Cholesterol 31 mg/dl (40-60); Potassium 4.4 mmoL/L (3.5-5.1); Sodium 138 mmol/L (136-145); Total Protein,Serum 7.1 g/dl (6.3-8.2); Triglycerides 232 mg/dl (30-150); VLDL Cholesterol 46 mg/dL (0-40)
[2023-09-26 12:05] LABS: Basophils % 0.3 % (0.1-2.0); Eosinophils # 0.2 K/mm3 (0.0-0.4); Eosinophils % 4.9 % (0.1-12.0); Hemoglobin 16.6 g/dL (14.1-18.0); Lymphocytes # 1.6 K/mm3 (0.7-4.5); Lymphocytes % 33.5 % (10-50); Mean Corpuscular HGB Conc 35.2 g/dL (31.8-35.4); Mean Corpuscular Hemoglobin 33.1 pg (27.0-31.2); Mean Corpuscular Volume 93.9 fl (80-94); Mean Platelet Volume 7.4 fl (7.4-10.4); Monocytes # 0.3 K/mm3 (0.1-1.0); Monocytes % 5.4 % (1.7-9.3); Neutrophils # 2.6 K/mm3 (1.8-7.8); Neutrophils % 55.9 % (37.0-80.0); Platelet Count 161 K/mm3 (142-424); Red Cell Distribution Width 12.8 % (11.5-17.5); White Blood Count 4.7 K/mm3 (4.8-10.8)
[2023-09-26 12:07] LABS: Creatinine,Urine Random 14 mg/dL (Not Estab.)
[2023-09-26 12:08] LABS: Microalbumin/Creatinine Ratio 111.4
[2023-09-26 12:15] LABS: Direct LDL Cholesterol 117.78 mg/dL (100-129)
[2023-09-26 12:16] LABS: Cannabinoid Screen,Urine Positive ng/ml (<50)
[2023-09-26 12:17] LABS: Barbiturates Screen,Urine Negative ng/ml (<200); Benzodiazepines Screen,Urine Negative ng/ml (<200)
[2023-09-26 12:18] LABS: Cocaine Screen,Urine Negative ng/ml (<300); Methadone Screen,Urine Negative ng/ml (<300)
[2023-09-26 12:19] LABS: Opiate Screen,Urine Negative ng/ml (<300)
[2023-09-26 12:20] LABS: Phencyclidine Screen,Urine Negative ng/ml (<25)
[2023-09-26 12:33] LABS: Thyroid Stimulating Hormone 1.86 uIU/mL (0.465-4.68)
[2023-09-26 12:44] LABS: Amphetamine/Metha Screen,Urine Negative ng/ml (<1000)
== END ==
PROVIDERS: PCP Internal Medicine; Visit Provider Internal Medicine
DX: R73.03 Prediabetes (principal); R53.83 Other fatigue; Z79.899 Other long term (current) drug therapy
CPT/HCPCS: 80053; 80061; 80305; 82043; 82306; 82570; 84443; 85025

== ENCOUNTER 2023-11-15 09:46 | Outpatient (CLI) | payer BC, SELFPAY ==
[2023-11-15 11:16] LABS: Blood Urea Nitrogen 10 mg/dl (9-20); Estimated Glomerular Filt Rate 98 ml/min (>60); GFR (African American) 119 ML/MIN (>60)
== END 2023-11-15 23:59 ==
LOC: LAB 09:48
PROVIDERS: PCP Internal Medicine; Visit Provider Surgery
DX: R10.9 Unspecified abdominal pain (principal)
CPT/HCPCS: 36415; 82565; 84520

== ENCOUNTER 2023-11-25 08:38 | Outpatient (CLI) | payer BC, SELFPAY ==
--- NOTE | 2023-11-25 08:39 | CT_ITS ---
FINAL REPORT CLINICAL HISTORY: abominal pain COMPARISON: 11/03/2018 FINDINGS: CT OF THE ABDOMEN AND PELVIS WITH CONTRAST Axial CT images of the abdomen and pelvis were obtained after the administration of oral and iv contrast. Coronal and sagittal reformatted images were also obtained and reviewed.This study was performed with techniques to keep radiation doses as low as reasonably achievable (ALARA). Individualized dose reduction techniques using automated exposure control or adjustment of mA and/or kV according to the patient's size were employed. Abdomen: The lung bases are clear. The heart is normal in size. There is fatty infiltration of the liver. There are several areas of increased attenuation in the liver of questionable etiology. These may represent small masses or THADs. The spleen is unremarkable. No adrenal mass is present. The pancreas has an unremarkable appearance. The kidneys are normal, without evidence of mass or hydronephrosis. There is an abdominal aortic aneurysm, infrarenal, measuring 4.7 cm and greatest diameter with moderate mural thrombus. Moderate vascular calcification is also noted in the aorta. There is a 2.4 cm right common iliac artery aneurysm. There is no free fluid or adenopathy. No mass or abnormal fluid collection is seen. Pelvis: The appendix is normal in appearance. The urinary bladder is unremarkable. There are several sigmoid diverticula without evidence of acute inflammatory change. There is no evidence of mass or adenopathy. There is no evidence of bowel obstruction. A left hip arthroplasty has been performed. There is an umbilical hernia with a nonobstructing loop of small bowel present. There are small inguinal hernias containing fat only. Moderate lumbar degenerative changes present. IMPRESSION: Several increased attenuation areas in the liver, of uncertain etiology but may represent small masses or THADs. These could be further evaluated with liver MRI if indicated. 4.7 cm abdominal aortic aneurysm, infrarenal, with moderate mural thrombus as described. There is also a 2.4 cm right common iliac artery aneurysm. Umbilical hernia which contains nonobstructed loop of small bowel. Reviewed, Interpreted and Dictated by Armin Nicholson III, MD Transcribed by Vanessa Snider Authenticated and [facility]
[2023-11-25] MEDS: SODIUM CHLORIDE 0.9% 10ML SYR (RAD ONLY) 10 ML IV (09:01)
[2023-11-25] MEDS: IOPAMIDOL-370 (76%);100ML BOTTLE 75 ML IV (09:01)
== END 2023-11-25 23:59 ==
LOC: RAD 08:39
PROVIDERS: PCP Internal Medicine; Visit Provider Surgery
DX: R10.9 Unspecified abdominal pain (principal)
CPT/HCPCS: 74177; Q9967

== ENCOUNTER 2023-12-01 09:48 | Outpatient (CLI) | payer BC, SELFPAY ==
--- NOTE | 2023-12-01 09:48 | US_ITS ---
FINAL REPORT CLINICAL HISTORY: RUQ pain COMPARISON: None FINDINGS: Sonographic images of the right upper quadrant were obtained. The pancreas is obscured.The liver has an unremarkable appearance.The gallbladder appears normal without evidence of gallstones.There is no evidence of biliary ductal dilatation.The common duct measures 3 mm. Limited images of the right kidney are unremarkable. IMPRESSION: Unremarkable right upper quadrant ultrasound. Reviewed, Interpreted and Dictated by Jeb Wong MD Transcribed by Vanessa Snider Authenticated and [facility]
== END 2023-12-01 23:59 ==
LOC: RAD 09:48
PROVIDERS: PCP Internal Medicine; Visit Provider Surgery
DX: R10.11 Right upper quadrant pain (principal)
CPT/HCPCS: 76705

== ENCOUNTER 2024-01-11 11:07 | Outpatient (CLI) | payer BC, SELFPAY ==
[2024-01-11 11:44] LABS: Blood Urea Nitrogen 14 mg/dl (9-20); Estimated Glomerular Filt Rate 98 ml/min (>60); GFR (African American) 119 ML/MIN (>60)
== END 2024-01-11 23:59 ==
LOC: LAB 11:09
PROVIDERS: PCP Internal Medicine; Visit Provider Surgery
DX: Z01.812 Encounter for preprocedural laboratory examination (principal)
CPT/HCPCS: 36415; 82565; 84520

== ENCOUNTER 2024-01-16 07:23 | Outpatient (CLI) | payer BC, SELFPAY ==
--- NOTE | 2024-01-16 07:24 | MR_ITS ---
FINAL REPORT CLINICAL HISTORY: MRI liver protocol. Liver lesion COMPARISON: CT abdomen and pelvis dated 11/25/2023 FINDINGS: Multiplanar MR imaging of the abdomen was performed without and with contrast. On arterial phase imaging, there are multiple foci of contrast-enhancement seen in the liver measuring up to 14 mm. These areas are not visualized on the T2 weighted images or the more delayed postcontrast imaging. Findings are favored to represent multiple THADs (transient hepatic attenuation differences). A 4.9 cm abdominal aortic aneurysm is noted. There is moderate to large mural thrombus. Small bilateral renal cysts are present. IMPRESSION: Multiple foci in the liver consistent with THADs (transient hepatic attenuation differences). Reviewed, Interpreted and Dictated by Armin Nicholson III, MD Transcribed by Laney Leach Authenticated and . [facility]
[2024-01-16] MEDS: SODIUM CHLORIDE 0.9% 10ML SYR (RAD ONLY) 10 ML IV (08:43)
[2024-01-16] MEDS: SODIUM CHLORIDE 0.9% 50ML BAG 35 ML IV (08:44)
[2024-01-16] MEDS: GADOTERIDOL INJ 17ML SYRINGE 15 ML IV (08:44)
== END 2024-01-16 23:59 ==
LOC: RAD 07:24
PROVIDERS: PCP Internal Medicine; Visit Provider Surgery
DX: K76.9 Liver disease, unspecified (principal)
CPT/HCPCS: 74183; A9576

== ENCOUNTER 2024-02-16 15:41 | Outpatient (CLI) | payer BC, SELFPAY ==
[2024-02-16 18:59] LABS: Basophils # 0.1 K/mm3 (0-0.2); Eosinophils # 0.3 K/mm3 (0.0-0.4); Eosinophils % 4.4 % (0.1-12.0); Hematocrit 49.5 % (42.0-52.0); Hemoglobin 16.7 g/dL (14.1-18.0); Lymphocytes # 1.4 K/mm3 (0.7-4.5); Lymphocytes % 23.2 % (10-50); Mean Corpuscular HGB Conc 33.7 g/dL (31.8-35.4); Mean Corpuscular Hemoglobin 32.6 pg (27.0-31.2); Mean Corpuscular Volume 96.7 fl (80-94); Monocytes # 0.3 K/mm3 (0.1-1.0); Monocytes % 5.7 % (1.7-9.3); Neutrophils # 3.9 K/mm3 (1.8-7.8); Neutrophils % 65.7 % (37.0-80.0); Platelet Count 154 K/mm3 (142-424); Red Blood Count 5.12 M/mm3 (4.60-6.20); Red Cell Distribution Width 13.2 % (11.5-17.5); White Blood Count 5.9 K/mm3 (4.8-10.8)
[2024-02-16 19:19] LABS: Alanine Aminotransferase 42 U/L (12-78); Albumin Level 4.4 g/dl (3.5-5.0); Albumin/Globulin Ratio 1.6 (1.1-1.8); Alkaline Phosphatase 82 U/L (38-126); Anion Gap 16.2 mEq/L (5-15); Aspartate Amino Transferase 46 U/L (17-59); Bilirubin,Total 0.6 mg/dl (0.2-1.3); Blood Urea Nitrogen 14 mg/dl (9-20); Calcium 9.6 mg/dl (8.4-10.2); Carbon Dioxide 26 mmol/L (22.0-30.0); Chloride 100 mmol/L (98-107); Chol/HDL Ratio 4.9 (1-3.5); Cholesterol 212 mg/dl (140-200); Estimated Glomerular Filt Rate 114 ml/min (>60); GFR (African American) 138 ML/MIN (>60); Globulin 2.8 g/dL (1.3-3.2); Glucose 135 mg/dl (74-100); HDL Cholesterol 43 mg/dl (40-60); Potassium 4.2 mmoL/L (3.5-5.1); Sodium 138 mmol/L (136-145); Total Protein,Serum 7.2 g/dl (6.3-8.2); Triglycerides 255 mg/dl (30-150); VLDL Cholesterol 51 mg/dL (0-40)
[2024-02-16 19:30] LABS: Direct LDL Cholesterol 132.44 mg/dL (100-129)
[2024-02-16 20:54] LABS: Hemoglobin A1C 5.8 % (4.0-6.0)
== END 2024-02-16 23:59 | disposition home or self-care (01) ==
LOC: LAB.DROPOF 02-17 15:41
PROVIDERS: PCP Internal Medicine; Visit Provider Internal Medicine
DX: I10 Essential (primary) hypertension (principal); Z79.899 Other long term (current) drug therapy
CPT/HCPCS: 80053; 80061; 83036; 85025

== ENCOUNTER 2024-03-19 14:45 | Outpatient (CLI) | payer BC, SELFPAY | END 2024-03-19 23:59 | disposition home or self-care (01) | LOC: ER 14:49 | PROVIDERS: PCP Neurological Surgery; Visit Provider Ophthalmology | DX: Z02.83 Encounter for blood-alcohol and blood-drug test (principal) | CPT/HCPCS: 36415 ==

== ENCOUNTER 2024-08-20 10:00 | Outpatient (CLI) | payer BC, SELFPAY ==
[2024-08-20 11:30] LABS: Hemoglobin A1C 5.4 % (4.0-6.0)
[2024-08-20 11:33] LABS: Prostate Specific Ag Screen 0.3 ng/ml (0.0-4.0)
[2024-08-20 15:02] LABS: Microalbumin/Creatinine Ratio 114.7
[2024-08-20 15:18] LABS: Creatinine,Urine Random 80 mg/dL (Not Estab.)
== END 2024-08-20 23:59 | disposition home or self-care (01) ==
LOC: LAB 10:01
PROVIDERS: PCP Internal Medicine; Visit Provider Internal Medicine
DX: Z12.5 Encounter for screening for malignant neoplasm of prostate (principal); Z13.1 Encounter for screening for diabetes mellitus; J20.9 Acute bronchitis, unspecified; R73.03 Prediabetes; Z72.0 Tobacco use
CPT/HCPCS: 36415; 82043; 82570; 83036; G0103